=== PATIENT | female | born 1995 | race Caucasian/White ===

== ENCOUNTER 2017-02-23 12:40 | Inpatient (IN) | payer OTHER ==
[~2017-02-23] VITALS: Ht 162.6 cm; Wt 169.2 kg
[~2017-02-23 12:40] MED LIST: CLINDAMYCIN HC300 MG PO; FERROCITE324 MG PO; FLA500 PO; GUAIFENESI100 MG/52 PO; LAC PO; LEVAQUIN500 MG PO; LEVAQUIN750 MG PO; MAC50 PO; TRAZODONE HYDR100 MG PO; TRAZODONE100 MG PO; TRAZODONE50 M1 PO
--- NOTE | 2017-02-23 14:22 | NUR ---
TWO UNSUCCESSFUL IV INSERTION ATTEMPTS
--- NOTE | 2017-02-23 14:24 | NUR ---
PT BROUGHT IN VIA [facility] TO BE EVALUATED FOR THE COMPLAINT OF FEVER WHICH BEGAN THIS AM AND INCREASED AGITATION PER THE PTS MOTHER. MSE WAS COMPLETED BY DR. BERG. PT HAS HX OF SEVERE AUTISM AND IS NON-VERBAL. PT HAS ELEPHANITIS NOTED TO THE BILATERAL LOWER EXTREMITITES.
[2017-02-23 15:02] LABS: BASOPHIL % 1.9 % (0-2); PLATELET COUNT 197 x10^3mcL (130-400)
[2017-02-23 15:06] LABS: CALCIUM 8.3 mg/dL (8.5-10.1); CARBON DIOXIDE 26.2 mmol/L (21-32); CHLORIDE SERUM 104 mmol/L (98-107); CREATININE SERUM 0.8 mg/dL (0.6-1.0); GFR1 > 60 mL/min; GLUCOSE SERUM 93 mg/dL (74-106); SODIUM SERUM 138 mmol/L (136-145)
[2017-02-23 15:16] LABS: rbc morphology (normal/abnorm) ABNORMAL (NORMAL)
[2017-02-23 15:20] LABS: CK-MB 0.6 ng/mL (0-3.6)
[2017-02-23 15:30] LABS: ALKALINE PHOSPHATASE 94 U/L (46-116); ALT/SGPT 15 U/L (14-59); AST/SGOT 14 U/L (15-37); BILIRUBIN TOTAL 1.2 mg/dL (0.20-1.00)
[2017-02-23 15:46] LABS: ALBUMIN 3.2 g/dL (3.4-5.0)
[2017-02-23 15:55] LABS: UA SPECIFIC GRAVITY 1.015 (1.005-1.035); microscopic required? YES; urine erythrocyte TRACE (NEGATIVE)
[2017-02-23] MEDS ORDERED: KLONOPIN1 MG PO (16:35)
[2017-02-23] MEDS ORDERED: TRAZODONE50 M1 PO (16:35)
--- NOTE | 2017-02-23 17:27 | NUR ---
PT RESTING IN BED IN A POSITION OF COMFORT WITH MOTHER AT BEDSIDE, RESP EVEN AND UNLABORED, PT IN NO ACUTE DISTRESS, MOTHER AT BEDSIDE
--- NOTE | 2017-02-23 19:22 | NUR ---
REPORT GIVEN TO FLASH WYATT TO ASSUME CARE FOR THIS PT POST TRANSFER FROM ED TO TELE UNIT
--- NOTE | 2017-02-23 19:27 | NUR ---
REPORT GIVEN TO TOMMIE TO CARE FOR THIS PT UNTIL THE PT IS TAKEN TO TELE
[2017-02-23 19:43] VITALS: BP 128/42
[2017-02-23 19:57] VITALS: BP 100/70
--- NOTE | 2017-02-23 20:06 | NUR ---
RECEIVED PATIENT FROM ED VIA GUERNEY, PATIENT A/O TO NAME MOTHER AT BEDSIDE, TELE # 3 ST, IV ACCESS TO CHOLO WNL, PATIENT NON VERBAL MOTHER AT BEDSIDE STATES PATIENT IS IN PAIN AND WILL MEDICATE ORDERED, ORIENTED PATIENT TO ROOM AND SURROUNDINGS, BED IN LOW POSITION BED RAILS UP X 2, CALL LIGHT WITHIN REACH, WILL ENDORSE CARE TO PRIMARY NURSE LEXY VIDALES
--- NOTE | 2017-02-23 20:10 | NUR ---
PICTURES TAKEN OF LOWER EXTREMITIES AND PLACED IN CHART.
--- NOTE | 2017-02-23 21:31 | NUR ---
PT'S TEMP = 101.4. COOLING MEASURES INITIATED AND TYLENOL WAS GIVEN. WILL CONTINUE TO MONITOR.
[2017-02-23 21:39] LABS: RED BLOOD CELLS 2.99 M/mm3 (4.10-5.10); TOTAL IRON BINDING CAPACITY 257 ug/dL (250-450)
[2017-02-23 21:43] LABS: IRON 11 ug/dL (50-170)
--- NOTE | 2017-02-23 22:50 | NUR ---
RECHECKED TEMP = 101.8. DR DEGROOT MADE AWARE.
--- NOTE | 2017-02-23 23:20 | NUR ---
TORADOL 15 MG IV GIVEN ORDERED FOR TEMP 101.8. WILL CONTINUE TO MONITOR.
--- NOTE | 2017-02-24 01:00 | NUR ---
RECHECKED TEMP = 102.2. DR PERKINS MADE AWARE. WILL WAIT FOR NEW ORDER.
--- NOTE | 2017-02-24 01:23 | NUR ---
TORADOL 30 MG IV GIVEN ORDERED FOR TEMP OF 102.2. WILL CONTINUE TO MONITOR.
--- NOTE | 2017-02-24 02:34 | NUR ---
RECHECKED TEMP = 99.9. COOLING MEASURES CONTINUE. WILL CONTINUE TO MONITOR.
--- NOTE | 2017-02-24 04:55 | NUR ---
PT RESTING IN BED. NO DISTRESS NOTED. IVF INFUSING WELL. CALL LIGHT WITHIN REACH. WILL CONTINUE TO MONITOR.
[2017-02-24 06:08] VITALS: BP 135/92
[2017-02-24 08:04] LABS: T3 TOTAL 0.8 ng/mL
[2017-02-24 08:08] LABS: CALCIUM 7.9 mg/dL (8.5-10.1); CARBON DIOXIDE 21.8 mmol/L (21-32); CHLORIDE SERUM 107 mmol/L (98-107); CREATININE SERUM 0.9 mg/dL (0.6-1.0); GFR1 > 60 mL/min; GLUCOSE SERUM 93 mg/dL (74-106); HDL CHOLESTEROL 50 mg/dL (40-60); LIPASE 51 IU/L (73-393); MAGNESIUM 1.8 mg/dL (1.8-2.4); PHOSPHOROUS 3.6 mg/dL (2.5-4.9); POTASSIUM SERUM 4.3 mmol/L (3.5-5.1); SODIUM SERUM 140 mmol/L (136-145); TRIGLYCERIDES 56 mg/dL (<150)
[2017-02-24 08:11] LABS: AMYLASE 15 U/L (25-115); CHOLESTEROL 79 mg/dL (<200); CHOLESTEROL/HDL RATIO 1.6
[2017-02-24 08:13] LABS: PLATELET COUNT 162 x10^3mcL (130-400)
[2017-02-24 08:14] LABS: RED CELL DISTRIBUTION WIDTH 19.8 % (11.5-14.5)
[2017-02-24 08:53] LABS: FREE T4 1.76 ng/dL (0.76-1.46); FREE THYROXINE INDEX 3.6 ug/dL (1.4-4.5); T4(THYROXINE) 9.7 ug/dL (4.7-13.3)
[2017-02-24 09:01] LABS: BAND NEUTROPHIL 1 % (0-10); BASOPHIL 0 % (0-2); MONOCYTE 1 % (0-7); SEGMENTED NEUTROPHILS 95 % (37-75)
[2017-02-24 09:02] LABS: rbc morphology (normal/abnorm) ABNORMAL (NORMAL)
[2017-02-24 09:03] LABS: PLATELET MORPHOLOGY PLATELETS DECREASED
--- NOTE | 2017-02-24 09:09 | NUR ---
PT AWAKE ALERT, PT IS ASPHASIC. TELE 3 SR. PT IS INCONTINENT OF BOWEL AND BLADDER. LUNGS DIMINISHED TO BLL. GENERALIZED WEAKNESS. BOWEL TONES ACTIVE IN ALL 4 QUADS. BLE CELLULITIS. NO SIGNS OF PAIN. IV TO THE CHOLO PATENT AND INTACT. PT IS CALM AND COOEPRATIVE WITH CARE. CALL LIGHT IN REACH.
[2017-02-24 09:52] VITALS: Ht 162.6 cm; Wt 169.2 kg
[2017-02-24 10:05] VITALS: BP 122/32
--- NOTE | 2017-02-24 11:10 | NUR ---
PT RESTING IN BED MOTHER AT BEDSIDE. NO SIGNS OF DISTRESS. NO SIGNS OF NON VERBAL INDICATORS OF PAIN. WILL CONTINUE TO MONITOR.
[2017-02-24 14:00] VITALS: BP 131/50
--- NOTE | 2017-02-24 14:57 | NUR ---
PATIENT WITH ELEVATED TEMPERATURE. PRN TYLENOL PROVIDED AND TOLERATED WELL. COOLING MEASURES IN PLACE. WILL CONTINUE MONITORING.
--- NOTE | 2017-02-24 15:26 | NUR ---
TEMPERATIVE RECHECKED AND WNL. PT SKIN WARM TO TOUCH. PT NONVERBAL UNABLE TO ASSESS NEURO STATUS. MOTHER REPORTS PT IS AT PTS BASELINE. AIR CONDITIONER ON WILL CONTINUE TO MONITOR.
[2017-02-24 16:50] VITALS: BP 123/59
--- NOTE | 2017-02-24 19:48 | NUR ---
RECEIVED Pt A/O X1 Pt IS APHASIC UNABLE TO ANSWER ANY QUESTIONS. NO DISTRESS NOTED AT THIS TIME. LUNG SOUNDS ARE CTA BILATERALLY. Pt IS ON ROOM AIR, NO SOB NOTED. ACTIVE BOWEL SOUNDS X4 QUADS. Pt WITH EDEMA TO BLE, REDNESS, WARM TO TOUCH AND TENDERNESS TO EXTREMITIES MAINLY TO LEFT UPPER THIGH. SOME DRAINNAGE NOTED WITH FOUL SMELL. MOTHER IS AT BEDSIDE. SAFETY AND COMFORT MEASURES REMAIN IN PLACE. WILL CONTINUE TO MONITOR.
--- NOTE | 2017-02-24 20:17 | NUR ---
Pt MEDIACTED WITH TORADOL IV FOR TEMP OF 101.0 A/C IS ON, Pt REFUSES TO KEEP COLD PACKS. WILL CONTINUE TO MONITOR.
[2017-02-24 20:39] VITALS: BP 109/51
--- NOTE | 2017-02-24 21:05 | NUR ---
NOTIFIED: Pt'S MOTHER REFUSED ENDOVAGINAL U/S.
[2017-02-25 02:42] LABS: BASOPHIL % 0.2 % (0-2); PLATELET COUNT 140 x10^3mcL (130-400)
[2017-02-25 02:43] LABS: RED CELL DISTRIBUTION WIDTH 19.3 % (11.5-14.5)
[2017-02-25 02:47] LABS: rbc morphology (normal/abnorm) ABNORMAL (NORMAL)
--- NOTE | 2017-02-25 02:57 | NUR ---
DR. DEGROOT AWARE OF H/H RESULTS. IV SITE TO CHOLO INFILTRATED.
[2017-02-25 03:23] VITALS: BP 112/54
--- NOTE | 2017-02-25 04:48 | NUR ---
X2 22 GAUGE IV SITES. RUE AND RIGHT HAND.
[2017-02-25 05:19] VITALS: BP 128/43
--- NOTE | 2017-02-25 06:00 | NUR ---
BLOOD TRANSFUSION STARTED. CALM AND COOPERATIVE. WILL CONTINUE TO MONITOR.
--- NOTE | 2017-02-25 06:45 | NUR ---
I HAVE REVIEWED THE DATA COLLECTION BY INTERNAL COMMUNICATIONS WRITER (NAME): GILBERTO ZAPATA INTERNAL COMMUNICATIONS WRITER ENTERED ON (DATE/TIME): 7P-7A I CONCUR WITH THE DATA AND ANY EXCEPTIONS OR COMMENTS ARE LISTED BELOW:
--- NOTE | 2017-02-25 07:53 | NUR ---
PT AWAKE ALERT, SPHASIC. TELE 2. MOTHER STATES PT IS AT NORMAL BASELINE. DUE TO DEFICITS UNABLE TO ASSESS NEURO STATUS COMPLETLY. PT TRACKS WITH EYES, FLEXES TO PAIN, AND MOANS AND GRUNTS WHEN IN PAIN OR NEEDING ASSISTANCE. LUNG SOUNDS DIMINISHED TO BLL, SHALLOW EVEN REPIRATIONS. BOWEL TONES ACTIVE IN ALL QUADRANTS. PT IS INCONTINENT OF BOWEL AND BLADDER. BED REST AT THIS TIME. SKIN IS INTACT, WITH CELLULITIS AND DISCOLORATION TO BLE. IV TO THE KELY/RH INFUSING, PT CURRENTLY RECIEVING BLOOD TRANSFUSION. FAMILY AT BEDSIDE. WILL CONTINUE TO MONITOR CALL LIGHT IN REACH.
--- NOTE | 2017-02-25 09:30 | NUR ---
BLOOD TRANSFUSION COMPLETED POST VS WNL, NO TRANSFUSION REACTION. 250 ML INFUSED, REMAINING BLOOD DISPOSED.
--- NOTE | 2017-02-25 09:30 | NUR ---
PT OFF THE FLOOR IN PROCEDURE.
--- NOTE | 2017-02-25 13:09 | NUR ---
PT RESTING IN BED NO SIGNS OF DISTRESS CALL LIGHT IN REACH, FAMILY AT BEDSIDE. WILL CONTINUE TO MONITOR.
[2017-02-25 14:49] VITALS: BP 127/66
--- NOTE | 2017-02-25 17:49 | NUR ---
PT RESTING IN BED NO SIGNS OF DISTRESS, EVEN UNLABORED RESPIRATIONS VSS. CALL LIGHT IN REACH, FAMILY AT BEDSIDE WILL CONTINUE TO MONITOR.
[2017-02-25 18:29] VITALS: BP 128/67
--- NOTE | 2017-02-25 18:36 | NUR ---
TEMPERATIRE ELEVATED COOLING MEASURES IN PLACE. WILL REASSESS
[2017-02-25 18:44] LABS: CALCIUM 7.9 mg/dL (8.5-10.1); CARBON DIOXIDE 24.8 mmol/L (21-32); CHLORIDE SERUM 108 mmol/L (98-107); GFR1 > 60 mL/min; GLUCOSE SERUM 92 mg/dL (74-106); MAGNESIUM 1.9 mg/dL (1.8-2.4); PHOSPHOROUS 3.9 mg/dL (2.5-4.9); POTASSIUM SERUM 4.3 mmol/L (3.5-5.1); SODIUM SERUM 141 mmol/L (136-145)
[2017-02-25 18:50] LABS: PLATELET COUNT 167 x10^3mcL (130-400)
[2017-02-25 19:08] LABS: BASOPHIL % 0 % (0-2)
[2017-02-25 19:15] LABS: rbc morphology (normal/abnorm) ABNORMAL (NORMAL); target cell (codocyte) 2+
--- NOTE | 2017-02-25 19:15 | NUR ---
DR MILLER AWARE OF PATIENT'S H/H.
--- NOTE | 2017-02-25 19:20 | NUR ---
PATIENT RECEIVED AWAKE AND ALERT. MOTHER AT BEDSIDE. NO DISTRESS NOTED. NO SIGNS AND SYMPTOMS OF PAIN NOTED. IV SITE TO KELY, PATENT AND INTACT. IV SITE TO RIGHT FOREARM, PATENT AND INTACT. BED IN LOWEST POSITION. CALL LIGHT WITHIN REACH. WILL CONTINUE TO MONITOR.
[2017-02-25 20:52] VITALS: BP 100/63
[2017-02-25 20:54] VITALS: BP 98/47
--- NOTE | 2017-02-26 05:11 | NUR ---
PATIENT RESTED THROUGHOUT THE NIGHT. NO DISTRESS NOTED. NO SIGNS AND SYMPTOMS OF PAIN NOTED. SAFETY AND COMFORT MEASURES MAINTAINED. BED IN LOWEST POSITION. CALL LIGHT WITHIN REACH. WILL CONTINUE TO MONITOR AND ENDORSE TO NEXT SHIFT NURSE.
--- NOTE | 2017-02-26 05:12 | NUR ---
IV TO RIGHT UPPER ARM INFILTRATED DC'D AT THIS TIME.
[2017-02-26 05:37] VITALS: BP 141/66
[2017-02-26 06:24] LABS: CALCIUM 7.8 mg/dL (8.5-10.1); CARBON DIOXIDE 24.5 mmol/L (21-32); CHLORIDE SERUM 114 mmol/L (98-107); CREATININE SERUM 0.9 mg/dL (0.6-1.0); GFR1 > 60 mL/min; GLUCOSE SERUM 82 mg/dL (74-106); MAGNESIUM 1.9 mg/dL (1.8-2.4); PHOSPHOROUS 3.8 mg/dL (2.5-4.9); POTASSIUM SERUM 4.5 mmol/L (3.5-5.1); SODIUM SERUM 147 mmol/L (136-145)
[2017-02-26 06:26] LABS: ALBUMIN 2.1 g/dL (3.4-5.0)
[2017-02-26 06:37] LABS: PLATELET COUNT 167 x10^3mcL (130-400)
[2017-02-26 06:44] LABS: BASOPHIL % 0 % (0-2); RED CELL DISTRIBUTION WIDTH 19.5 % (11.5-14.5)
[2017-02-26 06:46] LABS: rbc morphology (normal/abnorm) ABNORMAL (NORMAL)
[2017-02-26 06:48] LABS: target cell (codocyte) 1+
--- NOTE | 2017-02-26 07:35 | NUR ---
RECEIVED THE PATIENT AWAKE BUT NON-VERBAL AT THIS TIME WITH HX OF AUTISM. NO INDICATION OF PAIN, SHORTNESS OF BREATH OR NAUSEA/VOMITING. TELE # 2 READS SINUS TACHYCARDIA. IVF NS VIA H/L TO RFA. CALL LIGHT WITHIN REACH. SIDE RAILS UP X3. THE MOTHER WAS AT BEDSIDE.
--- NOTE | 2017-02-26 08:00 | NUR ---
DR. ENRIQUEZ AND THE TEAM WERE MAKING ROUND TO SEE THE PATIENT. THE CARE PLAN WAS DISCUSSED WITH THE PATIENT'S MOTHER. DR. ENRIQUEZ WAS MADE AWARE OF THE PATIENT'S LAB RESULTS THIS MORNING INCLUDING H/H 5.7.
[2017-02-26 09:46] VITALS: BP 130/73
--- NOTE | 2017-02-26 11:35 | NUR ---
THE PATIENT WAS TAKEN TO OR FOR CENTRAL LINE INSERTION.
[2017-02-26 13:20] VITALS: BP 141/75
--- NOTE | 2017-02-26 13:20 | NUR ---
RECEIVED THE PATIENT BACK FROM RECOVERY ROOM S/P CENTRAL LINE INSERTION TO [facility]. THE PATIENT WAS SLIGHTLY DROWSY BUT FOLLOW SIMPLE COMMANDS. VS CHECKED (SEE DOC). CALL LIGHT WITHIN REACH. SIDE RAILS UP X3. BED WAS AT LOWEST POSITION AND ALARM WAS ON. THE MOTHER WAS AT BEDSIDE. CONTINUE TO MONITOR.
--- NOTE | 2017-02-26 15:30 | NUR ---
AT 1515, ONE UNIT OF PRBC STARTED TO BE INFUSED. THE VS CHECKED TEMP 98.8, HR 102, BP 134/73, RR 16, AND PO2 100% ON NASAL CANNULA AT 2L/MIN. INSTRUCTED THE MOTHER TO NOTIFY THE NURSE FOR ANY ADVERSE REACTION. AT 1530, RECHECKING THE VS (15MIN BLOOD STARTED TO INFUSED): TEMP 99.3 (AXILLARY) AND 99.9 (TEMPORAL), HR 105 BP 122/73, RR 16 AND PO2 99% ON NASAL CANNULA AT 2L/MIN. DR. ENRIQUEZ WAS PAGED TO NOTIFY THE INCREASING TEMP.
--- NOTE | 2017-02-26 15:51 | NUR ---
DR. ENRIQUEZ CALLED BACK AND WAS AWARE OF THE TEMP 99.3 (AXILLARY) AND 99.9 (TEMPORAL). DOCTOR VERBALIZED MEDICATING THE PATIENT WITH TYLENOL 650 MG PO. THE MED WAS GIVEN TO THE PATIENT. INSTRUCTED THE MOTHER TO CALL THE NURSE FOR ANY ADVERSE REACTION. CONTINUE TO MONITOR.
[2017-02-26 17:42] VITALS: BP 154/72
--- NOTE | 2017-02-26 18:30 | NUR ---
THE BLOOD TRANSFUSION COMPLETED. VS CHECKED: TEMP 99.3, BP 126/72, RR 16, HR 100, PO2 99 % ON ROOM AIR. NO ADVERSE REACTION NOTED.
--- NOTE | 2017-02-26 19:19 | NUR ---
3 PORTS OF CENTRAL LINE FLUSHED WELL PER PROTOCOL. THE IV WITH 1/2 NS RUNNING VIA THE BLUE PORT OF THE CENTRAL LINE.
[2017-02-26 20:31] LABS: PLATELET COUNT 168 x10^3mcL (130-400)
[2017-02-26 20:33] LABS: BASOPHIL % 0 % (0-2); RED CELL DISTRIBUTION WIDTH 20.2 % (11.5-14.5)
[2017-02-26 21:39] VITALS: BP 153/75
--- NOTE | 2017-02-26 21:45 | NUR ---
Awake and responsive but no words spoken noted. No resp.distress noted. No cues of pain. Mother at the bedside. All due meds taken and tolerated well. Will cont.to monitor. Call light within reach.
--- NOTE | 2017-02-27 04:19 | NUR ---
Afebrile. No significant change in condition noted. No active bleeding observed. Mother at the bedside. No cues of pain. Cont.on IV cleocin and oral bactrim. Contact isolation E.coli, ESBL urine, proper use of PPE and good hand hygiene observed. Kept comfortable.
[2017-02-27 05:47] VITALS: BP 145/76
--- NOTE | 2017-02-27 07:20 | NUR ---
RESUME CARE: PATIENT AWAKE BUT NON VERBAL. NO INDICATION OF PAIN, NAUSEA/VOMITING OR SHORTNESS OF BREATH. CENTRAL LINE TO RIGHT NECK WITH DRESSING IN PLACE. ANOTHER H/L TO RFA. TELE # 2 READS SINUS RHYTHMS WITH EPISODES OF SINUS TACHYCARDIA. CALL LIGHT WITHIN REACH. SIDE RAILS UP X3. BED WAS AT LOWEST POSITION AND ALARM WAS ON. THE MOTHER WAS AT BEDSIDE.
--- NOTE | 2017-02-27 09:00 | NUR ---
DR. ENRIQUEZ AND THE TEAM WERE MAKING ROUND TO SEE THE PATIENT. THE CARE PLAN WAS UPDATED TO THE MOTHER AT BEDSIDE. THE MOTHER AGREED WITH THE PLAN.
[2017-02-27 09:57] VITALS: BP 141/73
[2017-02-27] MEDS ORDERED: BACDS PO (10:32)
[2017-02-27] MEDS ORDERED: FER300 PO (10:37)
[2017-02-27] MEDS ORDERED: PROV5 PO (10:40)
[2017-02-27 11:05] VITALS: BP 141/73
--- NOTE | 2017-02-27 11:28 | NUR ---
DR. DAHL-RESIDENT WAS CALLED AND NOTIFIED THAT THE PATIENT'S WOUND CULTURE SHOWS MDRO. DOCTOR WILL CHECK WITH SENIOR.
--- NOTE | 2017-02-27 12:20 | NUR ---
DISCHARGE INSTRUCTION WAS EXPLAINED AND HANDED TO THE PATIENT'S MOTHER, SUN JAMARI. ALL CONCERNS WERE ADDRESSED AND THE MOTHER VERBALIZED UNDERSTANDING. H/L AT RFA AND CENTRAL LINE AT RIGHT NECK WERE REMOVED WITH THE TIPS INTACT. THE TELE WAS REMOVED AND RETURNED. ID BANDS WERE REMOVED. THE PATIENT WAS TAKEN TO THE LOBBY VIA HER OWN WHEELCHAIR IN STABLE CONDITION. ALL HER BELONGINGS WERE SENT HOME WITH THE PATIENT UPON DISCHARGE.
== END 2017-02-27 12:22 | disposition home or self-care (01) | DRG 720 ==
LOC: ED 12:40 → DU 16:03
PROVIDERS: Emergency Medicine; Internal Medicine Gastroenterology; ADMIT Family Medicine
PROC: 30233N1 Transfusion of Nonautologous Red Blood Cells into Peripheral Vein, Percutaneous Approach (ICD-10-PCS; 2017-02-25)
PROC: 0DB98ZX Excision of Duodenum, Via Natural or Artificial Opening Endoscopic, Diagnostic (ICD-10-PCS; principal; 2017-02-25 09:15)
PROC: 0DB68ZX Excision of Stomach, Via Natural or Artificial Opening Endoscopic, Diagnostic (ICD-10-PCS; principal; 2017-02-25 09:15)
PROC: 05HM33Z Insertion of Infusion Device into Right Internal Jugular Vein, Percutaneous Approach (ICD-10-PCS; 2017-02-26)
PROC: B543ZZA Ultrasonography of Right Jugular Veins, Guidance (ICD-10-PCS; 2017-02-26)
DX: A41.9 Sepsis, unspecified organism (principal); N17.0 Acute kidney failure with tubular necrosis; K72.01 Acute and subacute hepatic failure with coma; K72.90 Hepatic failure, unspecified without coma; F72 Severe intellectual disabilities; E43 Unspecified severe protein-calorie malnutrition; R65.20 Severe sepsis without septic shock; N39.0 Urinary tract infection, site not specified; B96.20 Unspecified Escherichia coli [E. coli] as the cause of diseases classified elsewhere; E66.01 Morbid (severe) obesity due to excess calories; Z68.44 Body mass index [BMI] 60.0-69.9, adult; D50.9 Iron deficiency anemia, unspecified; K29.70 Gastritis, unspecified, without bleeding; K90.0 Celiac disease; T14.8 Other injury of unspecified body region; L03.116 Cellulitis of left lower limb; F84.0 Autistic disorder; I89.0 Lymphedema, not elsewhere classified; Z66 Do not resuscitate; X58.XXXA Exposure to other specified factors, initial encounter; Y92.009 Unspecified place in unspecified non-institutional (private) residence as the place of occurrence of the external cause
CPT/HCPCS: 43235; 83880; 84439; A4301; J1885; J1956; J2060; J2250; J2405; J2704; J2916; J3420; J3490; J7030; J7040; J7050; J7120; P9016; Q0092; Q0163

== ENCOUNTER 2017-04-09 09:23 | Inpatient (IN) | payer OTHER ==
[~2017-04-09] VITALS: Ht 162.6 cm; Wt 158.5 kg
[~2017-04-09 09:23] MED LIST changes: +BACDS PO; +FER300 PO; +KLONOPIN1 MG PO; +PROV5 PO
--- NOTE | 2017-04-09 09:40 | NUR ---
PT BIB [facility] WITH MOTHER AT BEDSIDE FOR MAGGOTS FOUND ON TOP OF LEFT FOOT, MOTHER STS SHE WAS DRESSING PT AND NOTICED THE MAGGOTS THIS MORNING, PER MEDIC PT HOUSE APPEARS CLEAN, PT HAS HX OF LYMPHEDEMA SINCE 2008, PT HAS SEVERE SWELLING AND DRY SKIN TO CATE LOWER EXT, PINK TINY BUMPS NOTED TO TOP OF LEFT FOOT WHICH APPEAR MOIST WITH MAGGOTS NOTED INSIDE CREVICES, PT HX OF AUTISM SINCE AND NONVERBAL, PER MOTHER NO SIGNIFICANT CHANGES IN MENTATIONS, PT AWAKE ALERT, NO GUARDING NOTED, PT RESP EVEN AND UNLABORED, IN NO ACUTE DISTRESS, RESTING COMFORTABLY IN BED WITH MOTHER AT BEDSIDE, PENDING MSE, CALL LIGHT WITHIN MOTHERS REACH, WILL CONTINUE TO MONITOR
--- NOTE | 2017-04-09 10:12 | NUR ---
PHOTOS TAKEN OF WOUND ON TOP OF FOOT AND PLACED ON HARD CHART, DR. SOLO AT BEDSIDE FOR MSE
--- NOTE | 2017-04-09 10:59 | NUR ---
PORT[facility] RADIOLOGY AT BEDSIDE FOR XRAY
--- NOTE | 2017-04-09 11:49 | NUR ---
ANOTHER FILM PROCESSING SUPERVISOR AT BEDSIDE TO ATTEMPT FOR BLOOD CULTURES AT THIS TIME, WILL ADMINISTER ORDERED ABX AFTER SECOND COLLECTION OF BLOOD CULTURES
[2017-04-09 12:09] LABS: BASOPHIL % 0.3 % (0-2); PLATELET COUNT 308 x10^3mcL (130-400)
--- NOTE | 2017-04-09 12:11 | NUR ---
IV ABX INFUSING AT THIS TIME PER MD ORDER, PLEASE SEE EMAR, PT TOLERATED WELL
[2017-04-09 12:15] LABS: RED CELL DISTRIBUTION WIDTH 22.4 % (11.5-14.5)
[2017-04-09 12:32] LABS: CALCIUM 8.8 mg/dL (8.5-10.1); CHLORIDE SERUM 107 mmol/L (98-107); CREATININE SERUM 0.6 mg/dL (0.6-1.0); GFR1 > 60 mL/min; GLUCOSE SERUM 91 mg/dL (74-106); POTASSIUM SERUM 4.3 mmol/L (3.5-5.1); SODIUM SERUM 142 mmol/L (136-145)
[2017-04-09 12:34] LABS: T3 TOTAL 1.69 ng/mL
[2017-04-09 12:36] LABS: ALKALINE PHOSPHATASE 103 U/L (46-116); ALT/SGPT 35 U/L (14-59); AST/SGOT 21 U/L (15-37); BILIRUBIN TOTAL 0.33 mg/dL (0.20-1.00); C REACTIVE PROTEIN 3.7 mg/dL (<=0.9); TOTAL PROTEIN, SERUM 7.9 g/dL (6.4-8.2)
[2017-04-09 12:37] LABS: ALBUMIN 3.1 g/dL (3.4-5.0); CK-MB 0.6 ng/mL (0-3.6)
--- NOTE | 2017-04-09 12:38 | NUR ---
PER DR. SOLO NO NEED FOR URINE COLLECTION
[2017-04-09 12:39] LABS: FREE T4 1.62 ng/dL (0.76-1.46); FREE THYROXINE INDEX 4.5 ug/dL (1.4-4.5); T4(THYROXINE) 12.4 ug/dL (4.7-13.3)
--- NOTE | 2017-04-09 13:00 | NUR ---
[facility]SA SWAB COLLECTED AND SENT TO LAB, [facility] RADIOLOGY AT BEDSIDE FOR CXR
[2017-04-09 13:01] LABS: CHOLESTEROL/HDL RATIO 3.8; MAGNESIUM 1.9 mg/dL (1.8-2.4); PHOSPHOROUS 3.9 mg/dL (2.5-4.9)
[2017-04-09] MEDS ORDERED: ADVIL100 MG PO (13:01)
[2017-04-09] MEDS ORDERED: CLONAZEPAM1 MG PO (13:02)
[2017-04-09] MEDS ORDERED: TRAZODONE100 MG PO (13:02)
--- NOTE | 2017-04-09 13:38 | NUR ---
REPORT GIVEN TO FLASH KAPOOR WHO TOOK REPORT FOR FLASH MASTERS TELE FLOOR TO ASSUME CARE OF PT
[2017-04-09 14:13] VITALS: BP 145/97
--- NOTE | 2017-04-09 14:30 | NUR ---
RECEIVED PATIENT FROM ED VIA GUERNEY, PATIENT A/O X 1 HX OF AUTISM MOTHER AT BEDSIDE, TELE # 60 ST, IV ACCESS TO RIGHT HAND WNL, NO C/O OR S/S OF PAIN AT THIS TIME, ORIENTED PATIENT/FAMILY TO ROOM AND SURROUNDINGS, BED IN LOW POSITION, BED RAILS UP X 2, CALL LIGHT WITHIN REACH, WILL ENDORSE CARE TO PRIMARY NURSE KIN RM
--- NOTE | 2017-04-09 16:00 | NUR ---
IV TO R HAND CATHETER OUT. NEW IV INSERTED TO LFA W/ 20G NEELDE. PATIENT REFUSED FOOD OUTSIDE HOME. BUT PATIENT ABLE TO DRINK WATER.
--- NOTE | 2017-04-09 17:00 | NUR ---
DR. HOOD CAME TO SAW PATIENT. WOUND CARE TO L FOOT BY DR. HOOD. PHOTO TAKEN. WOUND CULTURE CELLECTED.
--- NOTE | 2017-04-09 19:30 | NUR ---
NO S/S OF PAIN. ENDORSED CARE TO NOC NURSE.
--- NOTE | 2017-04-09 20:00 | NUR ---
RECEIVED REPORT FROM DAY SHIFT RN. PT RESTING IN BED. AWAKE AND ALERT, NONVERBAL. NO FACIAL GRIMACE. HX OF AUTISM. IV ON LFA, NS INFUSING. BED IN LOWEST POSITION. SIDE RAILS UP X2. MOTHER AT BEDSIDE.
--- NOTE | 2017-04-09 21:00 | NUR ---
ATIVAN 1 MG GIVEN PER ORDER PRIOR TO ULTRASOUND OF LOWER EXTREMITIES.
[2017-04-09 21:59] VITALS: BP 153/92
--- NOTE | 2017-04-09 23:50 | NUR ---
PT WAS RESTLESS AND AGITATED, MEDICATED WITH NORCO AND MORPHINE X1. PT WAS ABLE TO SLEEP AND NO DISTRESS NOTED AFTERWARDS. SAFETY MEASURES MAINTAINED. WILL ENDORSE CONTINUITY OF CARE TO ONCOMING RN. MOTHER AT BEDSIDE AND SUPPORTIVE OF CARE.
[2017-04-10 07:04] VITALS: BP 138/75
[2017-04-10 07:57] LABS: CALCIUM 8.3 mg/dL (8.5-10.1); CARBON DIOXIDE 26.3 mmol/L (21-32); CHLORIDE SERUM 108 mmol/L (98-107); CREATININE SERUM 0.6 mg/dL (0.6-1.0); GFR1 > 60 mL/min; GLUCOSE SERUM 95 mg/dL (74-106); MAGNESIUM 1.9 mg/dL (1.8-2.4); PHOSPHOROUS 4.3 mg/dL (2.5-4.9); POTASSIUM SERUM 4.2 mmol/L (3.5-5.1); SODIUM SERUM 141 mmol/L (136-145)
--- NOTE | 2017-04-10 08:00 | NUR ---
PATIENT HAS AUTISM. NONVERBRAL. MOTHER AT BED SIDE. TELE#60 = ST; HR = 107. NO RESP DISTRESS, O2 SAT 96% ON RA. NO S/S OF PAIN NOW. PATIENT REFUSED EAT OUTSIDE OF HOME. IVF OF NS 100CC/HR INFUSING WELL. DRSG TO LT FOOT APPLIED BY MARKETING SERVICES VICE PRESIDENT. DRSG INTACT. S/S INCONT. BLE SWELLING 4+. BED RESTING. CALL LIGHT IN REACH.
--- NOTE | 2017-04-10 09:30 | NUR ---
DR. RENAE AND MEDICAL TEAM MADE MORNING ROUND. PLAN OF CARE DISCUSSED WITH PATIENT'S MOTHER, INCLUDED WITH PATIANT NEEDS TO TRANSFER TO [facility] FOR LYNPHEDEMA BLE. PATIENT'S MOTHER AGREED WITH PLAN OF CARE. SHE WANTED PATIENT GO HOME TODAY.
[2017-04-10 10:21] LABS: ERYTHROCYTE SED RATE 34 mm/hr (0-20)
[2017-04-10 10:29] LABS: BASOPHIL % 0.2 % (0-2); PLATELET COUNT 291 x10^3mcL (130-400)
[2017-04-10 10:30] VITALS: BP 118/61
[2017-04-10 10:38] LABS: RED CELL DISTRIBUTION WIDTH 22.8 % (11.5-14.5)
[2017-04-10 11:24] LABS: rbc morphology (normal/abnorm) ABNORMAL (NORMAL)
[2017-04-10 13:26] VITALS: BP 118/61
--- NOTE | 2017-04-10 14:45 | NUR ---
D/C TO HOME PER ORDER. INSTRUCTION GIVEN TO MOTHER, MS. KIERRA KAUFFMAN. IV D/C'D. OVER NEEDLE CATHETER INTACT. IV SITE CLEAN. NO REDNESS/SWELLING. PER MOTHER - DRSG TO L FOOT WOULD BE CHANGED TOMORROW BY HOME HEALTH CARE NURSE. CONDITION STABLE.
== END 2017-04-10 14:46 | disposition home or self-care (01) | DRG 383 ==
LOC: ED 09:23 → DU 12:45
PROVIDERS: Family Medicine; Specialist; ADMIT Family Medicine
DX: L03.116 Cellulitis of left lower limb (principal); N17.0 Acute kidney failure with tubular necrosis; E44.0 Moderate protein-calorie malnutrition; Z94.89 Other transplanted organ and tissue status; L97.929 Non-pressure chronic ulcer of unspecified part of left lower leg with unspecified severity; B87.1 Wound myiasis; F84.0 Autistic disorder; I89.0 Lymphedema, not elsewhere classified; D50.9 Iron deficiency anemia, unspecified; E03.9 Hypothyroidism, unspecified; Z66 Do not resuscitate; E66.01 Morbid (severe) obesity due to excess calories; Z68.44 Body mass index [BMI] 60.0-69.9, adult
CPT/HCPCS: 83880; 84439; J1956; J2060; J2270; J3490; J7030; Q0092

== ENCOUNTER 2017-05-09 12:40 | Inpatient (IN) | payer OTHER ==
[~2017-05-09] VITALS: Ht 162.6 cm; Wt 158.8 kg
[~2017-05-09 12:40] MED LIST changes: +ADVIL100 MG PO; +CLONAZEPAM1 MG PO
[2017-05-09 14:13] LABS: PLATELET COUNT 234 x10^3mcL (130-400)
[2017-05-09 14:17] LABS: RED CELL DISTRIBUTION WIDTH 19.5 % (11.5-14.5)
[2017-05-09 14:27] LABS: CALCIUM 8.4 mg/dL (8.5-10.1); CARBON DIOXIDE 26.5 mmol/L (21-32); CHLORIDE SERUM 103 mmol/L (98-107); CREATININE SERUM 0.8 mg/dL (0.6-1.0); GFR1 > 60 mL/min; GLUCOSE SERUM 98 mg/dL (74-106); POTASSIUM SERUM 4.1 mmol/L (3.5-5.1); SODIUM SERUM 138 mmol/L (136-145)
[2017-05-09 14:41] LABS: ALKALINE PHOSPHATASE 146 U/L (46-116); ALT/SGPT 41 U/L (14-59); AST/SGOT 36 U/L (15-37); TOTAL PROTEIN, SERUM 7.8 g/dL (6.4-8.2)
[2017-05-09 14:42] LABS: ALBUMIN 2.7 g/dL (3.4-5.0)
[2017-05-09 15:27] LABS: BAND NEUTROPHIL 11 % (0-10); MONOCYTE 2 % (0-7); SEGMENTED NEUTROPHILS 80 % (37-75)
[2017-05-09 15:28] LABS: rbc morphology (normal/abnorm) ABNORMAL (NORMAL)
[2017-05-09 16:11] LABS: CHOLESTEROL/HDL RATIO 3.4; MAGNESIUM 1.7 mg/dL (1.8-2.4); PHOSPHOROUS 3.5 mg/dL (2.5-4.9)
[2017-05-09 16:36] VITALS: BP 130/69
[2017-05-09 16:47] LABS: FREE T4 1.43 ng/dL (0.76-1.46); FREE THYROXINE INDEX 3.5 ug/dL (1.4-4.5); T4(THYROXINE) 9.2 ug/dL (4.7-13.3)
[2017-05-09 16:49] VITALS: Ht 162.6 cm; Wt 158.8 kg
[2017-05-09 16:58] LABS: T3 TOTAL 0.65 ng/mL
[2017-05-09 21:16] VITALS: BP 124/52
[2017-05-10 05:50] LABS: RED BLOOD CELLS 3.87 M/mm3 (4.10-5.10)
[2017-05-10 06:03] LABS: CALCIUM 7.7 mg/dL (8.5-10.1); CARBON DIOXIDE 25.2 mmol/L (21-32); CHLORIDE SERUM 106 mmol/L (98-107); CREATININE SERUM 0.8 mg/dL (0.6-1.0); GFR1 > 60 mL/min; GLUCOSE SERUM 95 mg/dL (74-106); MAGNESIUM 1.8 mg/dL (1.8-2.4); PHOSPHOROUS 3.9 mg/dL (2.5-4.9); POTASSIUM SERUM 3.8 mmol/L (3.5-5.1); SODIUM SERUM 137 mmol/L (136-145)
[2017-05-10 06:06] VITALS: BP 146/68
[2017-05-10 06:12] LABS: IRON 20 ug/dL (50-170); TOTAL IRON BINDING CAPACITY 160 ug/dL (250-450)
[2017-05-10 07:28] LABS: PLATELET COUNT 172 x10^3mcL (130-400)
[2017-05-10 07:29] LABS: RED CELL DISTRIBUTION WIDTH 19.2 % (11.5-14.5)
[2017-05-10 08:00] VITALS: BP 125/56
[2017-05-10 10:23] LABS: BAND NEUTROPHIL 12 % (0-10); BASOPHIL 0 % (0-2); MONOCYTE 1 % (0-7); SEGMENTED NEUTROPHILS 82 % (37-75)
[2017-05-10 10:24] LABS: rbc morphology (normal/abnorm) ABNORMAL (NORMAL)
[2017-05-10 10:25] LABS: PLATELET MORPHOLOGY PLATELETS DECREASED
[2017-05-10 12:07] VITALS: BP 163/58
[2017-05-10 18:46] VITALS: BP 111/70
[2017-05-10 21:12] VITALS: BP 123/78
[2017-05-11 05:31] VITALS: BP 113/84
[2017-05-11 06:19] LABS: PLATELET COUNT 176 x10^3mcL (130-400)
[2017-05-11 07:06] LABS: CARBON DIOXIDE 23.6 mmol/L (21-32); CHLORIDE SERUM 106 mmol/L (98-107); GLUCOSE SERUM 84 mg/dL (74-106); POTASSIUM SERUM 3.9 mmol/L (3.5-5.1); SODIUM SERUM 138 mmol/L (136-145)
[2017-05-11 07:07] LABS: CALCIUM 7.7 mg/dL (8.5-10.1); CREATININE SERUM 0.7 mg/dL (0.6-1.0); GFR1 > 60 mL/min
[2017-05-11 08:24] VITALS: BP 111/51
[2017-05-11 12:58] LABS: BAND NEUTROPHIL 8 % (0-10); BASOPHIL 0 % (0-2); MONOCYTE 16 % (0-7); SEGMENTED NEUTROPHILS 64 % (37-75); rbc morphology (normal/abnorm) ABNORMAL (NORMAL)
[2017-05-11 12:59] LABS: PLATELET MORPHOLOGY PLATELETS DECREASED
[2017-05-11 17:46] VITALS: BP 100/75
[2017-05-11 21:14] VITALS: BP 143/84
[2017-05-12 06:21] VITALS: BP 134/80
[2017-05-12 07:50] VITALS: BP 131/65
[2017-05-12] MEDS ORDERED: LEVAQUIN750 MG PO ×2 (11:15→11:18)
[2017-05-12] MEDS ORDERED: CLEOCIN HCL150 MG PO (11:17)
[2017-05-12] MEDS ORDERED: LAC PO (12:22)
[2017-05-12 12:32] VITALS: BP 131/65
== END 2017-05-12 13:15 | disposition home or self-care (01) | DRG 720 ==
LOC: ED 12:40 → MU 15:01 → DU 15:01 → MU 16:22 → DU 16:24 → MU 05-10 07:33
PROVIDERS: Emergency Medicine; Student in an Organized Health Care Education/Training Program; ADMIT Family Medicine
DX: A41.9 Sepsis, unspecified organism (principal); N17.0 Acute kidney failure with tubular necrosis; E43 Unspecified severe protein-calorie malnutrition; L03.311 Cellulitis of abdominal wall; I89.0 Lymphedema, not elsewhere classified; E83.42 Hypomagnesemia; D50.9 Iron deficiency anemia, unspecified; R15.9 Full incontinence of feces; R32 Unspecified urinary incontinence; F84.0 Autistic disorder; E66.01 Morbid (severe) obesity due to excess calories; Z68.44 Body mass index [BMI] 60.0-69.9, adult; Z94.89 Other transplanted organ and tissue status
CPT/HCPCS: 83880; 84439; J1885; J1956; J3475; J3490; J7030; Q0092

== ENCOUNTER 2017-06-15 18:27 | Emergency (ER) | payer OTHER ==
[~2017-06-15 18:27] MED LIST changes: +CLEOCIN HCL150 MG PO
[2017-06-15 21:24] LABS: PLATELET COUNT 260 x10^3mcL (130-400)
[2017-06-15 21:26] LABS: CALCIUM 8.2 mg/dL (8.5-10.1); CARBON DIOXIDE 28.4 mmol/L (21-32); CHLORIDE SERUM 105 mmol/L (98-107); CREATININE SERUM 0.8 mg/dL (0.6-1.0); GFR1 > 60 mL/min; GLUCOSE SERUM 107 mg/dL (74-106); POTASSIUM SERUM 4.1 mmol/L (3.5-5.1); SODIUM SERUM 140 mmol/L (136-145)
[2017-06-15 21:37] LABS: BASOPHIL % 0 % (0-2); RED CELL DISTRIBUTION WIDTH 17.4 % (11.5-14.5)
[2017-06-15 21:54] LABS: ALKALINE PHOSPHATASE 135 U/L (46-116); ALT/SGPT 55 U/L (14-59); AST/SGOT 43 U/L (15-37); BILIRUBIN TOTAL 0.4 mg/dL (0.20-1.00); HDL CHOLESTEROL 35 mg/dL (40-60); LIPASE 84 IU/L (73-393); MAGNESIUM 1.5 mg/dL (1.8-2.4); T4(THYROXINE) 10.8 ug/dL (4.7-13.3); TOTAL PROTEIN, SERUM 7.6 g/dL (6.4-8.2)
[2017-06-15 21:55] LABS: ALBUMIN 2.9 g/dL (3.4-5.0); AMYLASE 18 U/L (25-115); CHOLESTEROL 119 mg/dL (<200)
[2017-06-15 22:03] LABS: microscopic required? NO
[2017-06-15 22:16] LABS: UA SPECIFIC GRAVITY 1.025 (1.005-1.035); urine erythrocyte NEGATIVE (NEGATIVE)
[2017-06-15 22:24] LABS: AMPHETAMINE QUAL UR NONE DETECTED (NEG <=1000)
[2017-06-16 00:18] VITALS: BP 125/50
[2017-06-16] MEDS ORDERED: LEVOTHYROXINE0.05 M2 PO (13:30)
[2017-06-16] MEDS ORDERED: NEOMYCIN SULFA500 MG PO (13:31)
== END 2017-06-16 00:18 | disposition home or self-care (01) ==
LOC: ED 18:27
PROVIDERS: Emergency Medicine
DX: K72.90 Hepatic failure, unspecified without coma (principal); R45.1 Restlessness and agitation; E46 Unspecified protein-calorie malnutrition; E03.9 Hypothyroidism, unspecified; F84.0 Autistic disorder; I89.0 Lymphedema, not elsewhere classified; Z66 Do not resuscitate; Z88.0 Allergy status to penicillin; Z88.1 Allergy status to other antibiotic agents; Z91.012 Allergy to eggs
CPT/HCPCS: 82962; 83880; G0480; J1956; J7030

== ENCOUNTER 2017-06-16 10:59 | Inpatient (IN) | payer OTHER ==
[~2017-06-16] VITALS: Ht 162.6 cm; Wt 176.4 kg
[2017-06-16] VITALS (7 sets, daily range): BP systolic 81–104; BP diastolic 28–54; Ht 162.6 cm; Wt 176.4 kg
--- NOTE | 2017-06-16 11:39 | NUR ---
PT PRESENTS TO THE ER THIS MORNING FOR CULTURE CALL BACK. PT WAS HERE YESTERDAY FOR CHILLS AND GENERALIZED WEAKNESS PER MOM. PT APEARS TO BE PALE ACCORDING TO MOM. RESPIRATIONS EVEN AND UNLABORED. VITAL SIGNS STABLE. PT HAS A HX OF LYMPODEMA OF BILATERAL LEGS. NO ACUTE DISTRESS NOTED.
--- NOTE | 2017-06-16 12:18 | NUR ---
PT APPEARS TO BE RESTING COMFORTABLY. PT BECOMES AGITATED WHEN TRYING TO OBTAIN BP. VITAL SIGNS STABLE. NO ACUTE DISTRESS NOTED.
--- NOTE | 2017-06-16 12:37 | NUR ---
LAB AT BEDSIDE FOR BLOOD DRAW
--- NOTE | 2017-06-16 13:20 | NUR ---
UNABLE TO COLLECT URINE FROM PT PT FAMILY REFUSES STRAIGHT CATH, DR DENNEY AWARE
[2017-06-16 13:30] LABS: PLATELET COUNT 243 x10^3mcL (130-400)
[2017-06-16] MEDS ORDERED: LEVOTHYROXINE0.05 M2 PO (13:30)
[2017-06-16] MEDS ORDERED: NEOMYCIN SULFA500 MG PO (13:31)
--- NOTE | 2017-06-16 13:32 | NUR ---
EMT AT BEDSIDE FOR EKG
--- NOTE | 2017-06-16 14:00 | NUR ---
REPORT GIVEN TO GEE ON MED/TELE.
--- NOTE | 2017-06-16 14:06 | NUR ---
DR. DENNEY NOTIFIED OF PT LACTIC ACID LEVEL BEING 2.2
[2017-06-16 14:16] LABS: ALBUMIN 2.6 g/dL (3.4-5.0); BILIRUBIN TOTAL 0.98 mg/dL (0.20-1.00); CARBON DIOXIDE 24.4 mmol/L (21-32); CREATININE SERUM 1.6 mg/dL (0.6-1.0); POTASSIUM SERUM 4.8 mmol/L (3.5-5.1); TOTAL PROTEIN, SERUM 6.5 g/dL (6.4-8.2)
[2017-06-16 14:17] LABS: BAND NEUTROPHIL 7 % (0-10); BASOPHIL 0 % (0-2); MONOCYTE 2 % (0-7); SEGMENTED NEUTROPHILS 91 % (37-75)
[2017-06-16 14:18] LABS: PLATELET MORPHOLOGY PLATELETS NORMAL; rbc morphology (normal/abnorm) ABNORMAL (NORMAL)
--- NOTE | 2017-06-16 14:30 | NUR ---
RECEIVED PT FROM ED VIA MANDEEP, CAME IN DUE TO WEAKNESS, CHILLS AND RLE PAIN, PT'S MOTHER STATED THAT SHE WAS CALLED FOR A GROWTH IN PT'S BLOOD CULTURE. PT IS AWAKE AND ALERT. NO SOB NOTED. NO S/S OF CHEST PAIN/PRESSURE, SINUS TACHYCARDIA ON THE MONITOR, HR AT 132. NO S/S OF ABDOMINAL DISCOMFORT. W/ HX OF LYMPHEDEMA ON BLE. W/ OPEN WOUND ON THE RLE AND MILD REDNESS AND WARM TO TOUCH ON RLE. W/ DARK DISCOLORATION ON BLE. SIDE RAILS UPX2. CALL LIGHT ON REACH. MOTHER AT BEDSIDE. RECEIVED PT FROM ED W/ NS AND HARRISON ONGOING. PRIMARY NURSE AT BEDSIDE FOR CONTINUITY OF CARE
[2017-06-16 14:32] LABS: MAGNESIUM 1.5 mg/dL (1.8-2.4); PHOSPHOROUS 3.9 mg/dL (2.5-4.9)
[2017-06-16 14:34] LABS: CHOLESTEROL/HDL RATIO 2.3
[2017-06-16 14:40] LABS: FREE T4 1.63 ng/dL (0.76-1.46); FREE THYROXINE INDEX 3.8 ug/dL (1.4-4.5); T4(THYROXINE) 10.2 ug/dL (4.7-13.3)
[2017-06-16 14:41] LABS: T3 TOTAL 0.41 ng/mL
--- NOTE | 2017-06-16 17:47 | NUR ---
BP = 83/28. MAP = 43. LACTIC ACID = 3.4. DR GIRARD MADE AWARE.
--- NOTE | 2017-06-16 18:30 | NUR ---
BP = 84/42, MAP = 54. ST 123 ON TELE MONITOR. CHARGE NURSE AWARE. BOLUS OF NS INFUSING NOW. WILL CONTINUE TO MONITOR.
--- NOTE | 2017-06-16 19:10 | NUR ---
RECEIVED REPORT FROM FLASH FLYNN WILL ENDORSE CARE
--- NOTE | 2017-06-16 19:10 | NUR ---
BP = 81/52. MAP = 63. DR CARSON MADE AWARE AND ORDERED 1L BOLUS OF NS. BOLUS STARTED.
--- NOTE | 2017-06-16 19:23 | NUR ---
1.3L BOLUS OF NS GIVEN. BP = 97/52, MAP = 67.
--- NOTE | 2017-06-16 20:58 | NUR ---
PT LYING IN BED, ALERT BUT NONVERBAL, ANXIOUS, IV PATENT AND FLUSHING, MOTHER AT BEDSIDE. OPEN WOUND RLF. HX AUTISM. NO OTHER COMPLAINTS AT THIS TIME. WILL CONTINUE TO MONITOR.
--- NOTE | 2017-06-17 00:38 | NUR ---
PT SLEEPING, IN BED NO S/S OF DISTRESS, WILL CONTINUE TO MONITOR
[2017-06-17 05:35] VITALS: BP 135/53
[2017-06-17 07:12] LABS: CALCIUM 7.7 mg/dL (8.5-10.1); CARBON DIOXIDE 22.1 mmol/L (21-32); CREATININE SERUM 1.8 mg/dL (0.6-1.0); POTASSIUM SERUM 4.5 mmol/L (3.5-5.1)
[2017-06-17 07:14] LABS: PLATELET COUNT 190 x10^3mcL (130-400)
--- NOTE | 2017-06-17 07:16 | NUR ---
REPORT GIVEN TO FLASH FLYNN WILL ENDORSE CARE
[2017-06-17 07:18] LABS: IRON 13 ug/dL (50-170); TOTAL IRON BINDING CAPACITY 159 ug/dL (250-450)
--- NOTE | 2017-06-17 08:00 | NUR ---
RECEIVED PT IN BED ALERT, NON-VERBAL. ST 130 ON TELE MONITOR. NO S/S OF PAIN OR DISCOMFORT. DENIES ANY GI UPSET. INCONTINENT. HX LYMPHEDEMA. EDEMA NOTED TO BLE. SMALL WOUND NOTED TO RLE. R THIGH WARM TO TOUCH. GENERALIZED WEAKNESS. MOM AT BEDSIDE. INSTRUCTED TO USE CALL LIGHT WHEN IN NEED OF ASSISTANCE.
[2017-06-17 08:09] LABS: BASOPHIL % 0 % (0-2); RED CELL DISTRIBUTION WIDTH 17.9 % (11.5-14.5)
[2017-06-17 10:07] VITALS: BP 108/35
[2017-06-17 10:52] VITALS: BP 116/72
[2017-06-17 13:24] VITALS: BP 116/45
[2017-06-17 17:08] VITALS: BP 104/53; BP 119/73
--- NOTE | 2017-06-17 17:56 | NUR ---
PT IN BED, MOTHER AT BEDSIDE. NORCO PO GIVEN PT APPEARED RESTLESS AND WOULD MOAN OCCASIONALLY. PT APPEARS MORE CALM AT THIS TIME. WILL CONTINUE TO MONITOR.
--- NOTE | 2017-06-17 20:00 | NUR ---
PATIENT RECEIVED RESTING IN BED. MENTALLY CHALLENGED. RESPIRATION EVEN AND UNLABORED, ON ROOM AIR. ONGOING 0.9% NS AT 126 CC/HR INFUSING WELL AT THE LEFT FOREARM. INCONTINENT OF URINE. GENERALIZED WEAKNESS. NEEDS ASSISTANCE WITH ADL'S. +LYMPHEDEMA TO BLE, BLE PRESENCE OF BLISTERS AND DISCOLORATION, SMALL OPEN WOUND TO RLE. ON TELE #6. MOTHER AT THE BEDSIDE. ON CONTACT ISOLATION FOR HX OF ESBL IN URINE. WILL CONTINUE TO MONITOR.
--- NOTE | 2017-06-18 05:54 | NUR ---
PATIENT DOZING ON AND OFF. RESPIRATION EVEN AND UNLABORED, ON ROOM AIR. NO SIGN OF DISCOMFORT NOTED. IV SITE NO SIGN OF INFILTRATION. ASSISTED WITH NEEDS. SAFETY OBSERVED. PLACED CALL LIGHT WITHIN REACH. KEPT CLEAN AND DRY. MAINTAINED ON CONTACT ISOLATION FOR HX OF ESBL IN URINE. MOTHER STAYED OVERNIGHT.
[2017-06-18 06:46] VITALS: BP 98/58
[2017-06-18 07:01] LABS: CARBON DIOXIDE 21.8 mmol/L (21-32); CREATININE SERUM 1.6 mg/dL (0.6-1.0); MAGNESIUM 1.8 mg/dL (1.8-2.4); POTASSIUM SERUM 4.6 mmol/L (3.5-5.1)
--- NOTE | 2017-06-18 07:20 | NUR ---
PT IS ON CONTACT ISOLATION. PT SEEN REST ON BED, MOANING. PT'S MOM AT BED SIDE. PT NON VEBAL, PT'S MOM STATED PT IS NOT IN PAIN MORE BECAUSE OF ANXIOUS. PT BREATHING ON RA, EVEN, UNLABORED. IV SITE PATENT, INTACT. IVF INFUSING WELL.
[2017-06-18 08:05] VITALS: BP 113/76
[2017-06-18 09:12] LABS: BASOPHIL % 0.1 % (0-2); PLATELET COUNT 189 x10^3mcL (130-400)
[2017-06-18 09:14] LABS: RED CELL DISTRIBUTION WIDTH 18.4 % (11.5-14.5)
[2017-06-18 10:56] VITALS: BP 113/76
[2017-06-18 13:28] VITALS: BP 136/59
--- NOTE | 2017-06-18 18:14 | NUR ---
PT'S IV INFILTRATED. NO IV INSERTION SUCCESSFULLY AFTER MULTIPLE TRIES. PT'S MOM REQUEST SWITCH PT'S IV ANTIBIOTICS TO PO. MADE DR. MCMANUS AWARE. NORCO GIVEN PER PRN ORDER TO HELP PT RELAXE.
[2017-06-18 18:19] VITALS: BP 122/65
--- NOTE | 2017-06-18 19:22 | NUR ---
PHARMACY CALLED TO VERIFIED PT'S PO ATIVAN AND ORAL ANTIBIOTICS. REPORTS GIVEN TO RECEIVING NURSE. PT'S MOM AT BED SIDE. PT STAY CALM, NO DISTRESSED NOTED AT THIS TIME.
--- NOTE | 2017-06-18 19:30 | NUR ---
PT IS ALERT BUT NON VERBAL, DUE TO AUTISM. UNABLE TO TELL WHAT SHE NEEDS. MOM AT BEDSIDE, LUNG SOUND CLEAR BILATERAL, NO COUGH, NO S/S OF SOB, PT IS ON TELE 6, ST, NO S/S OF CHEST PAIN. BOWEL SOUND PRESENT ALL 4 QUADRANTS, NO DISTENTION, NO TENDER. PT HAS LYMPHEDEMA BLE, SMALL OPEN WOUND TO RLE, PT NEED TOTAL CARE. NO IV ACCESS, MADE AWARE, ALL ADLS ASSIST, ALL NEED MET, CALL LIGHT IN REACH, WILL CONTINUE TO MONITOR.
[2017-06-18 21:41] VITALS: BP 139/70
--- NOTE | 2017-06-19 04:58 | NUR ---
PT IS AWAKE, NON VERBAL, NO S/S OF RESPIRATORY DISTRESS, NO S/S OF PAIN OR DISCOMFORT, MOTHER AT BEDSIDE, ALL ADLS ASSIST, ALL NEED MET, CALL LIGHT IN REACH, WILL CONTINUE TO MONITOR.
[2017-06-19 06:25] LABS: BASOPHIL % 0.5 % (0-2); PLATELET COUNT 205 x10^3mcL (130-400)
[2017-06-19 06:33] LABS: RED CELL DISTRIBUTION WIDTH 18.7 % (11.5-14.5)
[2017-06-19 06:49] LABS: CALCIUM 7.9 mg/dL (8.5-10.1); CARBON DIOXIDE 24.6 mmol/L (21-32); CREATININE SERUM 1.2 mg/dL (0.6-1.0); MAGNESIUM 1.8 mg/dL (1.8-2.4); PHOSPHOROUS 4.6 mg/dL (2.5-4.9); POTASSIUM SERUM 4.7 mmol/L (3.5-5.1)
--- NOTE | 2017-06-19 08:00 | NUR ---
AAO TO SELF, NON VERBAL EXCEPT FOR GROANING AND WITHDRAWL TO TOUCH/CARE. LUNGS CTA. NO SOB. O2 SAT ON RA 93%. BS'S ACTIVE TIMES 4. BLE VERY EDEMETOUS WITH THICK BROWN SKIN AND CAULIFLOWER TYPE GROWTHS AND FOUL SMELL. HAS ONE WOUND TO RIGHT ANKLE WITH SMALL AMOUNT OF BLOOD ON SITE. NO IV, MOTHER REFUSES SHE WAS POKED MANY TIMES AND SHE HAS HARD VEINS TO START IV WITH.
--- NOTE | 2017-06-19 09:00 | NUR ---
MEDICAL ROUNDS WERE DONE WITH DR RENAE AND THE MEDICINE TEAM AT 0900. THE PLAN TODAY IS TO DC HER HOME WITH MOM.
[2017-06-19 10:54] VITALS: BP 120/89
[2017-06-19] MEDS ORDERED: LEV500 PO (14:25)
[2017-06-19] MEDS ORDERED: CLINDAMYCIN HC300 MG PO (14:26)
[2017-06-19] MEDS ORDERED: LAC PO (14:27)
[2017-06-19 14:41] VITALS: BP 120/89
[2017-06-19] MEDS ORDERED: FERROUS SULFAT325 M2 PO (14:43)
[2017-06-19] MEDS ORDERED: VITAMIN C PURE500 MG PO (14:43)
--- NOTE | 2017-06-19 15:04 | NUR ---
NO IV SITE. TOOK PHOTO OF BLE EDEMA AND RIGHT ANKLE WOUND. GAVE MOTHER DISCHARGE INSTRUCTIONS, MEDS SENT TO PHARMACY.
== END 2017-06-19 15:16 | disposition home health service (06) | DRG 383 ==
LOC: ED 10:59 → DU 12:41
PROVIDERS: Emergency Medicine; ADMIT Family Medicine
DX: L03.115 Cellulitis of right lower limb (principal); N17.0 Acute kidney failure with tubular necrosis; E43 Unspecified severe protein-calorie malnutrition; Z94.89 Other transplanted organ and tissue status; B95.62 Methicillin resistant Staphylococcus aureus infection as the cause of diseases classified elsewhere; I89.0 Lymphedema, not elsewhere classified; E87.1 Hypo-osmolality and hyponatremia; F84.0 Autistic disorder; E83.42 Hypomagnesemia; E03.9 Hypothyroidism, unspecified; D50.9 Iron deficiency anemia, unspecified; E66.01 Morbid (severe) obesity due to excess calories; Z68.44 Body mass index [BMI] 60.0-69.9, adult; Z66 Do not resuscitate
CPT/HCPCS: 83880; 84439; J1956; J2060; J3490; J7030; Q0092

== ENCOUNTER 2017-06-19 17:21 | Emergency (ER) | payer OTHER ==
[~2017-06-19 17:21] MED LIST changes: +FERROUS SULFAT325 M2 PO; +LEV500 PO; +LEVOTHYROXINE0.05 M2 PO; +NEOMYCIN SULFA500 MG PO; +VITAMIN C PURE500 MG PO
[2017-06-19 17:44] VITALS: BP 133/94
== END 2017-06-19 19:13 | disposition home or self-care (01) ==
LOC: ED 17:21
DX: Z00.8 Encounter for other general examination (principal); E66.01 Morbid (severe) obesity due to excess calories; E03.9 Hypothyroidism, unspecified; F84.0 Autistic disorder; G20 Parkinson's disease

== ENCOUNTER 2017-07-11 07:53 | Emergency (ER) | payer OTHER ==
[~2017-07-11] VITALS: Ht 165.1 cm; Wt 163.3 kg
[2017-07-11 09:41] VITALS: BP 142/75
== END 2017-07-11 10:07 | disposition home or self-care (01) ==
LOC: ED 07:53
DX: L03.311 Cellulitis of abdominal wall (principal); L03.116 Cellulitis of left lower limb; I89.0 Lymphedema, not elsewhere classified; Z88.0 Allergy status to penicillin; Z88.1 Allergy status to other antibiotic agents; Z88.8 Allergy status to other drugs, medicaments and biological substances
CPT/HCPCS: J1885

== ENCOUNTER 2017-07-11 18:31 | Inpatient (IN) | payer OTHER ==
[~2017-07-11] VITALS: Ht 162.6 cm; Wt 168.3 kg
[2017-07-11 19:42] LABS: BASOPHIL % 0.2 % (0-2); PLATELET COUNT 238 x10^3mcL (130-400)
[2017-07-11 19:43] LABS: RED CELL DISTRIBUTION WIDTH 20.2 % (11.5-14.5)
[2017-07-11 19:47] LABS: CALCIUM 8.3 mg/dL (8.5-10.1); CARBON DIOXIDE 26.8 mmol/L (21-32); CHLORIDE SERUM 103 mmol/L (98-107); CREATININE SERUM 0.9 mg/dL (0.6-1.0); GFR1 > 60 mL/min; GLUCOSE SERUM 100 mg/dL (74-106); SODIUM SERUM 136 mmol/L (136-145)
[2017-07-11 19:52] LABS: ALBUMIN 2.3 g/dL (3.4-5.0); ALKALINE PHOSPHATASE 129 U/L (46-116); ALT/SGPT 22 U/L (14-59); AST/SGOT 19 U/L (15-37); BILIRUBIN TOTAL 1.44 mg/dL (0.20-1.00); TOTAL PROTEIN, SERUM 7.1 g/dL (6.4-8.2)
[2017-07-11 20:15] LABS: ovalocyte/elliptocyte 1+; rbc morphology (normal/abnorm) ABNORMAL (NORMAL)
[2017-07-11 22:26] LABS: MAGNESIUM 1.7 mg/dL (1.8-2.4)
[2017-07-11 22:28] LABS: CHOLESTEROL/HDL RATIO 2.8
[2017-07-11 22:31] LABS: FREE T4 1.92 ng/dL (0.76-1.46); T3 TOTAL 1.2 ng/mL; T4(THYROXINE) 10.9 ug/dL (4.7-13.3)
[2017-07-11 22:36] VITALS: BP 127/54
[2017-07-12 00:30] VITALS: BP 120/56
[2017-07-12 06:07] VITALS: BP 131/81
[2017-07-12 06:47] LABS: CALCIUM 7.7 mg/dL (8.5-10.1); CHLORIDE SERUM 107 mmol/L (98-107); CREATININE SERUM 0.8 mg/dL (0.6-1.0); GFR1 > 60 mL/min; GLUCOSE SERUM 92 mg/dL (74-106); POTASSIUM SERUM 4.4 mmol/L (3.5-5.1); SODIUM SERUM 135 mmol/L (136-145)
[2017-07-12 08:30] VITALS: BP 112/75
[2017-07-12 09:53] LABS: PLATELET COUNT 181 x10^3mcL (130-400)
[2017-07-12 10:31] LABS: RED CELL DISTRIBUTION WIDTH 20.2 % (11.5-14.5)
[2017-07-12 11:00] LABS: BAND NEUTROPHIL 8 % (0-10); BASOPHIL 0 % (0-2); METAMYELOCTE 1 % (0-2); MONOCYTE 3 % (0-7); SEGMENTED NEUTROPHILS 82 % (37-75)
[2017-07-12 11:01] LABS: PLATELET MORPHOLOGY PLATELETS NORMAL; rbc morphology (normal/abnorm) ABNORMAL (NORMAL)
[2017-07-12 11:02] LABS: ovalocyte/elliptocyte 1+
[2017-07-12 11:36] VITALS: BP 114/65
[2017-07-12 11:43] VITALS: Ht 162.6 cm; Wt 168.3 kg
[2017-07-12 20:26] VITALS: BP 128/57
[2017-07-13 05:45] VITALS: BP 118/68
[2017-07-13 07:29] LABS: PLATELET COUNT 189 x10^3mcL (130-400)
[2017-07-13 07:45] LABS: CALCIUM 7.9 mg/dL (8.5-10.1); CARBON DIOXIDE 21.9 mmol/L (21-32); CHLORIDE SERUM 107 mmol/L (98-107); CREATININE SERUM 0.7 mg/dL (0.6-1.0); GFR1 > 60 mL/min; GLUCOSE SERUM 82 mg/dL (74-106); MAGNESIUM 1.8 mg/dL (1.8-2.4); SODIUM SERUM 137 mmol/L (136-145)
[2017-07-13 08:00] LABS: BASOPHIL % 0 % (0-2); RED CELL DISTRIBUTION WIDTH 20.9 % (11.5-14.5)
[2017-07-13 08:01] LABS: ovalocyte/elliptocyte 1+; rbc morphology (normal/abnorm) ABNORMAL (NORMAL)
[2017-07-13 09:01] VITALS: BP 128/52
[2017-07-13 14:26] VITALS: BP 108/69
[2017-07-13 17:37] VITALS: BP 145/70
[2017-07-13 21:45] VITALS: BP 135/88
[2017-07-14 06:08] VITALS: BP 136/88
[2017-07-14 06:10] LABS: BASOPHIL % 0.2 % (0-2); PLATELET COUNT 205 x10^3mcL (130-400)
[2017-07-14 06:16] LABS: RED CELL DISTRIBUTION WIDTH 20.4 % (11.5-14.5)
[2017-07-14 06:30] LABS: CALCIUM 7.7 mg/dL (8.5-10.1); CARBON DIOXIDE 23.6 mmol/L (21-32); CHLORIDE SERUM 108 mmol/L (98-107); CREATININE SERUM 0.6 mg/dL (0.6-1.0); GFR1 > 60 mL/min; GLUCOSE SERUM 71 mg/dL (74-106); POTASSIUM SERUM 3.7 mmol/L (3.5-5.1); SODIUM SERUM 139 mmol/L (136-145)
[2017-07-14 08:17] LABS: rbc morphology (normal/abnorm) ABNORMAL (NORMAL)
[2017-07-14 09:50] VITALS: BP 135/67
[2017-07-14] MEDS ORDERED: CLE150 PO (10:38)
[2017-07-14] MEDS ORDERED: LEV500 PO (10:40)
[2017-07-14] MEDS ORDERED: LAC PO (10:40)
[2017-07-14] MEDS ORDERED: BACTRIM DS1 TAB PO (11:10)
[2017-07-14 12:01] VITALS: BP 135/67
== END 2017-07-14 12:55 | disposition home health service (06) | DRG 720 ==
LOC: ED 18:31 → DU 21:06 → MU 21:06 → DU 21:06 → MU 07-13 10:16
PROVIDERS: Emergency Medicine; ADMIT Family Medicine
DX: A41.9 Sepsis, unspecified organism (principal); N17.0 Acute kidney failure with tubular necrosis; E43 Unspecified severe protein-calorie malnutrition; L03.311 Cellulitis of abdominal wall; L03.116 Cellulitis of left lower limb; R65.20 Severe sepsis without septic shock; I10 Essential (primary) hypertension; F84.0 Autistic disorder; Z68.44 Body mass index [BMI] 60.0-69.9, adult; E66.01 Morbid (severe) obesity due to excess calories; E83.42 Hypomagnesemia; E87.1 Hypo-osmolality and hyponatremia; D64.9 Anemia, unspecified; I16.0 Hypertensive urgency
CPT/HCPCS: 82962; 83880; 84439; 97110-GP; 97530-GP; J1170; J1956; J2060; J3490; J7030; Q0092

== ENCOUNTER 2017-08-27 09:16 | Inpatient (IN) | payer OTHER ==
[~2017-08-27] VITALS: Ht 162.6 cm; Wt 168.8 kg
[~2017-08-27 09:16] MED LIST changes: +BACTRIM DS1 TAB PO; +CLE150 PO
[2017-08-27 09:31] VITALS: Ht 162.6 cm; Wt 168.8 kg
[2017-08-27 10:16] LABS: PLATELET COUNT 277 x10^3mcL (130-400)
[2017-08-27 10:18] LABS: RED CELL DISTRIBUTION WIDTH 16.6 % (11.5-14.5)
[2017-08-27 10:25] LABS: CALCIUM 8.2 mg/dL (8.5-10.1); CARBON DIOXIDE 24.6 mmol/L (21-32); CHLORIDE SERUM 104 mmol/L (98-107); CREATININE SERUM 1.1 mg/dL (0.6-1.0); GFR1 > 60 mL/min; GLUCOSE SERUM 93 mg/dL (74-106); POTASSIUM SERUM 4.3 mmol/L (3.5-5.1); SODIUM SERUM 136 mmol/L (136-145)
[2017-08-27 10:36] LABS: ALBUMIN 2.3 g/dL (3.4-5.0); ALKALINE PHOSPHATASE 99 U/L (46-116); ALT/SGPT 23 U/L (14-59); AST/SGOT 23 U/L (15-37); BILIRUBIN TOTAL 0.93 mg/dL (0.20-1.00); C REACTIVE PROTEIN 17.3 mg/dL (<=0.9); TOTAL PROTEIN, SERUM 6.8 g/dL (6.4-8.2)
[2017-08-27 10:37] LABS: FREE T4 1.64 ng/dL (0.76-1.46); FREE THYROXINE INDEX 2.9 ug/dL (1.4-4.5); T4(THYROXINE) 8.3 ug/dL (4.7-13.3)
[2017-08-27 11:01] LABS: BAND NEUTROPHIL 27 % (0-10); BASOPHIL 0 % (0-2); SEGMENTED NEUTROPHILS 67 % (37-75)
[2017-08-27 11:03] LABS: PLATELET MORPHOLOGY PLATELETS NORMAL; rbc morphology (normal/abnorm) ABNORMAL (NORMAL)
[2017-08-27 11:13] LABS: ERYTHROCYTE SED RATE 43 mm/hr (0-20)
[2017-08-27 12:25] VITALS: BP 107/54
[2017-08-27 13:00] LABS: MAGNESIUM 1.5 mg/dL (1.8-2.4); PHOSPHOROUS 4.2 mg/dL (2.5-4.9)
[2017-08-27 13:57] LABS: T3 TOTAL 0.62 ng/mL
[2017-08-27 18:17] VITALS: BP 111/55
[2017-08-27 21:54] VITALS: BP 141/47
[2017-08-28 05:42] VITALS: BP 105/41
[2017-08-28 07:32] LABS: PLATELET COUNT 243 x10^3mcL (130-400)
[2017-08-28 07:39] LABS: RED CELL DISTRIBUTION WIDTH 18.5 % (11.5-14.5)
[2017-08-28 08:38] LABS: BAND NEUTROPHIL 19 % (0-10); MONOCYTE 2 % (0-7); SEGMENTED NEUTROPHILS 75 % (37-75); rbc morphology (normal/abnorm) ABNORMAL (NORMAL)
[2017-08-28 10:16] VITALS: BP 99/60
[2017-08-28 11:01] LABS: CALCIUM 7.8 mg/dL (8.5-10.1); CARBON DIOXIDE 23.5 mmol/L (21-32); CREATININE SERUM 1.8 mg/dL (0.6-1.0); MAGNESIUM 1.7 mg/dL (1.8-2.4); PHOSPHOROUS 5.8 mg/dL (2.5-4.9)
[2017-08-28 11:06] LABS: POTASSIUM SERUM 5.6 mmol/L (3.5-5.1)
[2017-08-28 17:55] VITALS: BP 100/45
[2017-08-28 21:01] VITALS: BP 100/40
[2017-08-29 05:50] VITALS: BP 107/44
[2017-08-29 09:18] LABS: PLATELET COUNT 253 x10^3mcL (130-400); RED CELL DISTRIBUTION WIDTH 18.9 % (11.5-14.5)
[2017-08-29 09:26] LABS: CALCIUM 8.1 mg/dL (8.5-10.1); CARBON DIOXIDE 24.5 mmol/L (21-32); CREATININE SERUM 2.7 mg/dL (0.6-1.0); PHOSPHOROUS 6.4 mg/dL (2.5-4.9); POTASSIUM SERUM 5.2 mmol/L (3.5-5.1)
[2017-08-29 09:40] VITALS: BP 105/45
[2017-08-29 10:42] LABS: BAND NEUTROPHIL 10 % (0-10); BASOPHIL 0 % (0-2); MONOCYTE 2 % (0-7); SEGMENTED NEUTROPHILS 82 % (37-75)
[2017-08-29 10:43] LABS: rbc morphology (normal/abnorm) ABNORMAL (NORMAL)
[2017-08-29 13:26] VITALS: BP 113/38
[2017-08-29 19:30] VITALS: BP 128/72
[2017-08-30 05:33] VITALS: BP 124/60
[2017-08-30 07:38] LABS: CARBON DIOXIDE 22.5 mmol/L (21-32); CREATININE SERUM 2.8 mg/dL (0.6-1.0); PHOSPHOROUS 5.8 mg/dL (2.5-4.9)
[2017-08-30 08:01] LABS: PLATELET COUNT 250 x10^3mcL (130-400); RED CELL DISTRIBUTION WIDTH 19.1 % (11.5-14.5)
[2017-08-30 09:05] LABS: UA SPECIFIC GRAVITY >=1.030 (1.005-1.035); microscopic required? YES; urine erythrocyte 3+ (NEGATIVE)
[2017-08-30 09:58] VITALS: BP 120/57
[2017-08-30 12:00] LABS: ATYPICAL LYMPH 1 %; BAND NEUTROPHIL 2 % (0-10); BASOPHIL 0 % (0-2); MONOCYTE 2 % (0-7); SEGMENTED NEUTROPHILS 92 % (37-75)
[2017-08-30 12:01] LABS: PLATELET MORPHOLOGY PLATELETS NORMAL; rbc morphology (normal/abnorm) ABNORMAL (NORMAL)
[2017-08-30 16:39] VITALS: BP 106/55
[2017-08-30 17:43] LABS: CALCIUM 8.3 mg/dL (8.5-10.1); CARBON DIOXIDE 22.5 mmol/L (21-32); CREATININE SERUM 2.9 mg/dL (0.6-1.0); POTASSIUM SERUM 5.1 mmol/L (3.5-5.1)
[2017-08-30 21:21] VITALS: BP 129/57
[2017-08-31 06:10] VITALS: BP 125/61
[2017-08-31 07:56] LABS: CALCIUM 8.3 mg/dL (8.5-10.1); CARBON DIOXIDE 22.9 mmol/L (21-32); CREATININE SERUM 2.8 mg/dL (0.6-1.0); POTASSIUM SERUM 5.1 mmol/L (3.5-5.1)
[2017-08-31 08:11] LABS: PLATELET COUNT 236 x10^3mcL (130-400)
[2017-08-31 08:17] LABS: BASOPHIL % 0 % (0-2); RED CELL DISTRIBUTION WIDTH 19.2 % (11.5-14.5)
[2017-08-31 10:19] VITALS: BP 109/61
[2017-08-31 17:31] VITALS: BP 119/62
[2017-08-31 22:56] VITALS: BP 126/71
[2017-09-01 07:07] VITALS: BP 128/68
[2017-09-01 10:00] VITALS: BP 122/54
[2017-09-01 10:51] LABS: BASOPHIL % 0.2 % (0-2); PLATELET COUNT 250 x10^3mcL (130-400)
[2017-09-01 10:52] LABS: RED CELL DISTRIBUTION WIDTH 18.4 % (11.5-14.5)
[2017-09-01 10:53] LABS: rbc morphology (normal/abnorm) ABNORMAL (NORMAL)
[2017-09-01 11:11] LABS: MAGNESIUM 2.1 mg/dL (1.8-2.4); PHOSPHOROUS 5.3 mg/dL (2.5-4.9)
[2017-09-01 11:12] LABS: CALCIUM 8.1 mg/dL (8.5-10.1); CREATININE SERUM 2.2 mg/dL (0.6-1.0); POTASSIUM SERUM 4.5 mmol/L (3.5-5.1)
[2017-09-01 16:46] VITALS: BP 120/55
[2017-09-01 21:27] VITALS: BP 112/55
[2017-09-02 05:33] VITALS: BP 107/74
[2017-09-02 09:31] LABS: BASOPHIL % 0.2 % (0-2); PLATELET COUNT 257 x10^3mcL (130-400)
[2017-09-02 09:45] LABS: CALCIUM 8.2 mg/dL (8.5-10.1); CARBON DIOXIDE 24.2 mmol/L (21-32); CREATININE SERUM 1.7 mg/dL (0.6-1.0); PHOSPHOROUS 4.5 mg/dL (2.5-4.9); POTASSIUM SERUM 4.1 mmol/L (3.5-5.1)
[2017-09-02 09:51] VITALS: BP 98/58
[2017-09-02 10:33] LABS: RED CELL DISTRIBUTION WIDTH 18.4 % (11.5-14.5)
[2017-09-02 17:25] VITALS: BP 131/90
[2017-09-02 21:24] VITALS: BP 125/68
[2017-09-03 05:38] VITALS: BP 124/70
[2017-09-03 07:10] LABS: CALCIUM 8.1 mg/dL (8.5-10.1); CARBON DIOXIDE 26.2 mmol/L (21-32); CREATININE SERUM 1.3 mg/dL (0.6-1.0); POTASSIUM SERUM 3.8 mmol/L (3.5-5.1)
[2017-09-03 07:47] LABS: BASOPHIL % 0.1 % (0-2); PLATELET COUNT 226 x10^3mcL (130-400); RED CELL DISTRIBUTION WIDTH 18.3 % (11.5-14.5); rbc morphology (normal/abnorm) ABNORMAL (NORMAL)
[2017-09-03] MEDS ORDERED: BACTRIM DS1 TAB PO (10:12)
[2017-09-03] MEDS ORDERED: LEVOFLOXACIN250 MG PO (10:17)
[2017-09-03] MEDS ORDERED: LAC PO (10:18)
[2017-09-03] MEDS ORDERED: L40 PO (10:22)
[2017-09-03] MEDS ORDERED: MYCP TOP (10:23)
[2017-09-03 14:11] VITALS: BP 124/70
== END 2017-09-03 15:05 | disposition home health service (06) | DRG 720 ==
LOC: ED 09:16 → DU 11:16 → MU 11:16 → DU 11:57 → MU 08-29 09:42
PROVIDERS: Family Medicine; Internal Medicine; Specialist; Student in an Organized Health Care Education/Training Program; Surgery
PROC: 05HM33Z Insertion of Infusion Device into Right Internal Jugular Vein, Percutaneous Approach (ICD-10-PCS; principal; 2017-08-29 14:30)
DX: A40.0 Sepsis due to streptococcus, group A (principal); N17.0 Acute kidney failure with tubular necrosis; E43 Unspecified severe protein-calorie malnutrition; R65.20 Severe sepsis without septic shock; E83.42 Hypomagnesemia; R47.01 Aphasia; E87.5 Hyperkalemia; E83.39 Other disorders of phosphorus metabolism; E66.01 Morbid (severe) obesity due to excess calories; Z68.44 Body mass index [BMI] 60.0-69.9, adult; L03.116 Cellulitis of left lower limb; B95.61 Methicillin susceptible Staphylococcus aureus infection as the cause of diseases classified elsewhere; I89.0 Lymphedema, not elsewhere classified; F84.0 Autistic disorder; F41.1 Generalized anxiety disorder; D50.9 Iron deficiency anemia, unspecified; E03.9 Hypothyroidism, unspecified; Z16.29 Resistance to other single specified antibiotic
CPT/HCPCS: 83880; 84439; 97110-GP; A4301; J1170; J1200; J1644; J1940; J1956; J2001; J2250; J2704; J2916; J3490; J7030; J7620; Q0092; Q0162

== ENCOUNTER 2018-07-16 08:28 | Inpatient (IN) | payer OTHER ==
[~2018-07-16] VITALS: Ht 162.6 cm; Wt 143.8 kg
[~2018-07-16 08:28] MED LIST changes: +L40 PO; +LEVOFLOXACIN250 MG PO; +MYCP TOP
[2018-07-16 09:27] LABS: CALCIUM 8.4 mg/dL (8.5-10.1); CARBON DIOXIDE 29.7 mmol/L (21-32); CHLORIDE SERUM 107 mmol/L (98-107); CREATININE SERUM 0.7 mg/dL (0.6-1.0); GFR1 > 60 mL/min; GLUCOSE SERUM 84 mg/dL (74-106); POTASSIUM SERUM 5.2 mmol/L (3.5-5.1); SODIUM SERUM 142 mmol/L (136-145)
[2018-07-16 09:30] LABS: PLATELET COUNT 44 x10^3mcL (130-400); RED CELL DISTRIBUTION WIDTH 19.3 % (11.5-14.5)
[2018-07-16 09:33] LABS: ALKALINE PHOSPHATASE 125 U/L (46-116); ALT/SGPT 111 U/L (14-59); AST/SGOT 108 U/L (15-37); TOTAL PROTEIN, SERUM 7.6 g/dL (6.4-8.2)
[2018-07-16 09:34] LABS: ALBUMIN 2.8 g/dL (3.4-5.0)
[2018-07-16] MEDS ORDERED: SEROQUEL50 M1 (10:01)
[2018-07-16] MEDS ORDERED: NASAL SPRAY44 ML (10:03)
[2018-07-16 10:16] LABS: BAND NEUTROPHIL 5 % (0-10); BASOPHIL 0 % (0-2); MONOCYTE 2 % (0-7); SEGMENTED NEUTROPHILS 77 % (37-75); rbc morphology (normal/abnorm) ABNORMAL (NORMAL)
[2018-07-16 10:17] LABS: PLATELET MORPHOLOGY PLATELETS DECREASED
[2018-07-16 10:45] LABS: microscopic required? YES; urine erythrocyte TRACE (NEGATIVE)
[2018-07-16 13:04] LABS: T3 TOTAL 0.65 ng/mL
[2018-07-16 13:26] LABS: RED CELL DISTRIBUTION WIDTH 19.7 % (11.5-14.5)
[2018-07-16 14:56] LABS: AMPHETAMINE QUAL UR NONE DETECTED (See below)
[2018-07-16 15:01] VITALS: BP 110/68
[2018-07-16 15:07] LABS: BAND NEUTROPHIL 8 % (0-10); MONOCYTE 4 % (0-7); SEGMENTED NEUTROPHILS 72 % (37-75)
[2018-07-16 15:08] LABS: PLATELET MORPHOLOGY PLATELETS DECREASED; ovalocyte/elliptocyte 1+; rbc morphology (normal/abnorm) ABNORMAL (NORMAL); tear drop cell (dacryocyte) 1+
[2018-07-16 15:09] LABS: PLATELET COUNT 30 x10^3mcL (130-400)
[2018-07-16 15:13] LABS: MAGNESIUM 2.1 mg/dL (1.8-2.4); PHOSPHOROUS 4.5 mg/dL (2.5-4.9)
[2018-07-16 15:22] LABS: FREE T4 1.01 ng/dL (0.76-1.46); FREE THYROXINE INDEX 2.3 ug/dL (1.4-4.5)
[2018-07-16 17:30] VITALS: BP 103/67
[2018-07-17 05:39] LABS: RED CELL DISTRIBUTION WIDTH 19.8 % (11.5-14.5)
[2018-07-17 05:43] LABS: CALCIUM 7.9 mg/dL (8.5-10.1); CARBON DIOXIDE 32.9 mmol/L (21-32); CHLORIDE SERUM 108 mmol/L (98-107); CREATININE SERUM 0.7 mg/dL (0.6-1.0); GFR1 > 60 mL/min; GLUCOSE SERUM 74 mg/dL (74-106); PHOSPHOROUS 4.8 mg/dL (2.5-4.9); POTASSIUM SERUM 5.4 mmol/L (3.5-5.1); SODIUM SERUM 145 mmol/L (136-145)
[2018-07-17 05:44] LABS: PLATELET COUNT 48 x10^3mcL (130-400)
[2018-07-17 06:10] LABS: SEGMENTED NEUTROPHILS 70 % (37-75)
[2018-07-17 06:12] LABS: BAND NEUTROPHIL 8 % (0-10); MONOCYTE 2 % (0-7); PLATELET MORPHOLOGY PLATELETS DECREASED; rbc morphology (normal/abnorm) ABNORMAL (NORMAL)
[2018-07-17 08:00] VITALS: BP 104/57
[2018-07-17 11:35] LABS: RED BLOOD CELLS 3.19 M/mm3 (4.10-5.10)
[2018-07-17 12:00] VITALS: BP 106/57
[2018-07-17 14:13] LABS: TOTAL IRON BINDING CAPACITY 296 ug/dL (250-450)
[2018-07-17 14:26] LABS: IRON 245 ug/dL (50-170)
[2018-07-17 15:32] VITALS: BP 119/46
[2018-07-17 19:20] VITALS: BP 115/45
[2018-07-17 23:02] VITALS: BP 112/46
[2018-07-18 03:12] VITALS: BP 126/51
[2018-07-18 05:24] LABS: BASOPHIL % 0.2 % (0-2)
[2018-07-18 05:37] LABS: CARBON DIOXIDE 30.4 mmol/L (21-32); CREATININE SERUM 1.2 mg/dL (0.6-1.0); PHOSPHOROUS 4.6 mg/dL (2.5-4.9)
[2018-07-18 06:09] LABS: RED CELL DISTRIBUTION WIDTH 22.4 % (11.5-14.5)
[2018-07-18 06:17] LABS: rbc morphology (normal/abnorm) ABNORMAL (NORMAL)
[2018-07-18 06:18] LABS: ovalocyte/elliptocyte 1+
[2018-07-18 06:25] LABS: PLATELET COUNT 41 x10^3mcL (130-400)
[2018-07-18 08:56] VITALS: BP 87/53
[2018-07-18 11:57] VITALS: BP 100/74
[2018-07-18 15:51] VITALS: BP 118/46
[2018-07-18 19:00] VITALS: BP 119/54
[2018-07-18 23:00] VITALS: BP 131/51
[2018-07-19 03:46] VITALS: BP 122/61
[2018-07-19 05:56] LABS: BASOPHIL % 0.1 % (0-2)
[2018-07-19 05:59] LABS: PLATELET COUNT 42 x10^3mcL (130-400); RED CELL DISTRIBUTION WIDTH 22.7 % (11.5-14.5)
[2018-07-19 06:05] LABS: CALCIUM 8.9 mg/dL (8.5-10.1); CREATININE SERUM 1.2 mg/dL (0.6-1.0); MAGNESIUM 2.2 mg/dL (1.8-2.4); PHOSPHOROUS 4.9 mg/dL (2.5-4.9); POTASSIUM SERUM 4.9 mmol/L (3.5-5.1)
[2018-07-19 07:30] VITALS: BP 115/62
[2018-07-19 08:13] VITALS: BP 115/62
[2018-07-19 12:00] VITALS: BP 140/77
[2018-07-19 19:30] VITALS: BP 128/76
[2018-07-20] VITALS: BP 138/80
[2018-07-20 03:26] VITALS: BP 127/80
[2018-07-20 05:32] LABS: BASOPHIL % 0.6 % (0-2); RED CELL DISTRIBUTION WIDTH 22.9 % (11.5-14.5)
[2018-07-20 05:40] LABS: CALCIUM 9.2 mg/dL (8.5-10.1); CARBON DIOXIDE 32.8 mmol/L (21-32); CHLORIDE SERUM 106 mmol/L (98-107); CREATININE SERUM 1.1 mg/dL (0.6-1.0); GFR1 > 60 mL/min; GLUCOSE SERUM 99 mg/dL (74-106); MAGNESIUM 1.9 mg/dL (1.8-2.4); PHOSPHOROUS 4.5 mg/dL (2.5-4.9); POTASSIUM SERUM 4.2 mmol/L (3.5-5.1); SODIUM SERUM 143 mmol/L (136-145)
[2018-07-20 05:41] LABS: rbc morphology (normal/abnorm) ABNORMAL (NORMAL)
[2018-07-20 05:42] LABS: PLATELET COUNT 41 x10^3mcL (130-400)
[2018-07-20 08:00] VITALS: BP 124/57
[2018-07-20 11:43] VITALS: BP 130/80
[2018-07-20 15:00] VITALS: BP 128/74
[2018-07-20 19:45] VITALS: BP 134/71
[2018-07-21 00:05] VITALS: BP 137/67
[2018-07-21 03:57] VITALS: BP 133/70
[2018-07-21 05:25] LABS: BASOPHIL % 0.2 % (0-2)
[2018-07-21 05:27] LABS: PLATELET COUNT 50 x10^3mcL (130-400); RED CELL DISTRIBUTION WIDTH 21.9 % (11.5-14.5)
[2018-07-21 05:32] LABS: CALCIUM 9.1 mg/dL (8.5-10.1); CARBON DIOXIDE 33.7 mmol/L (21-32); CHLORIDE SERUM 105 mmol/L (98-107); GFR1 > 60 mL/min; GLUCOSE SERUM 89 mg/dL (74-106); POTASSIUM SERUM 4.1 mmol/L (3.5-5.1); SODIUM SERUM 146 mmol/L (136-145)
[2018-07-21 05:57] LABS: rbc morphology (normal/abnorm) ABNORMAL (NORMAL)
[2018-07-21 07:25] VITALS: BP 131/72
[2018-07-21 11:50] VITALS: BP 127/75
[2018-07-21 15:00] VITALS: BP 155/73
[2018-07-22 05:59] LABS: BASOPHIL % 0.2 % (0-2); PLATELET COUNT 51 x10^3mcL (130-400); RED CELL DISTRIBUTION WIDTH 20.6 % (11.5-14.5)
[2018-07-22 06:53] LABS: rbc morphology (normal/abnorm) ABNORMAL (NORMAL)
[2018-07-22 07:22] LABS: CALCIUM 9.3 mg/dL (8.5-10.1); CARBON DIOXIDE 30.2 mmol/L (21-32); CHLORIDE SERUM 105 mmol/L (98-107); GFR1 > 60 mL/min; GLUCOSE SERUM 103 mg/dL (74-106); POTASSIUM SERUM 4.1 mmol/L (3.5-5.1); SODIUM SERUM 145 mmol/L (136-145)
[2018-07-22 07:49] VITALS: Ht 162.6 cm; Wt 143.8 kg
[2018-07-22 08:30] VITALS: BP 144/88
[2018-07-22 12:30] VITALS: BP 149/82
[2018-07-22 16:30] VITALS: BP 143/75
[2018-07-22 21:13] VITALS: BP 139/73
[2018-07-23 05:26] VITALS: BP 140/81
[2018-07-23 06:03] LABS: CALCIUM 8.6 mg/dL (8.5-10.1); CARBON DIOXIDE 35.9 mmol/L (21-32); CHLORIDE SERUM 106 mmol/L (98-107); CREATININE SERUM 0.8 mg/dL (0.6-1.0); GFR1 > 60 mL/min; GLUCOSE SERUM 115 mg/dL (74-106); POTASSIUM SERUM 4.1 mmol/L (3.5-5.1); SODIUM SERUM 144 mmol/L (136-145)
[2018-07-23 06:07] LABS: BASOPHIL % 0.3 % (0-2)
[2018-07-23 07:24] LABS: PLATELET COUNT 57 x10^3mcL (130-400); RED CELL DISTRIBUTION WIDTH 22.1 % (11.5-14.5)
[2018-07-23 09:30] VITALS: BP 122/76
[2018-07-23 10:29] LABS: ovalocyte/elliptocyte 1+; rbc morphology (normal/abnorm) ABNORMAL (NORMAL)
[2018-07-23 13:13] VITALS: BP 141/83
[2018-07-23 17:21] VITALS: BP 141/83
[2018-07-23 17:42] VITALS: BP 145/84
[2018-07-23 21:00] VITALS: BP 156/93
[2018-07-24 05:38] VITALS: BP 157/88
[2018-07-24 07:26] LABS: CALCIUM 8.9 mg/dL (8.5-10.1); CARBON DIOXIDE 30.6 mmol/L (21-32); CHLORIDE SERUM 106 mmol/L (98-107); CREATININE SERUM 0.7 mg/dL (0.6-1.0); GFR1 > 60 mL/min; GLUCOSE SERUM 99 mg/dL (74-106); MAGNESIUM 1.9 mg/dL (1.8-2.4); PHOSPHOROUS 4.1 mg/dL (2.5-4.9); SODIUM SERUM 143 mmol/L (136-145)
[2018-07-24 08:42] VITALS: BP 142/82
[2018-07-24 10:23] LABS: BASOPHIL % 0.4 % (0-2)
[2018-07-24 10:27] LABS: RED CELL DISTRIBUTION WIDTH 21.6 % (11.5-14.5)
[2018-07-24 10:28] LABS: PLATELET COUNT 33 x10^3mcL (130-400)
[2018-07-24 10:31] LABS: rbc morphology (normal/abnorm) ABNORMAL (NORMAL)
[2018-07-24 12:53] VITALS: BP 115/46
[2018-07-24 17:13] VITALS: BP 117/63
[2018-07-24 21:34] VITALS: BP 128/65
[2018-07-25 05:33] VITALS: BP 149/86
[2018-07-25 09:30] VITALS: BP 142/69
[2018-07-25 12:47] VITALS: BP 132/78
[2018-07-25 20:53] VITALS: BP 133/77
[2018-07-26 05:35] VITALS: BP 125/52
[2018-07-26 10:01] VITALS: BP 141/84
[2018-07-26 11:58] VITALS: BP 141/84
[2018-07-26 14:20] VITALS: BP 132/80
[2018-07-26 18:25] VITALS: BP 148/96
[2018-07-26 20:52] VITALS: BP 128/82
[2018-07-27 05:13] VITALS: BP 146/86
[2018-07-27 09:30] VITALS: BP 131/80
[2018-07-27 13:44] VITALS: BP 150/78
[2018-07-27 16:49] VITALS: BP 148/92
[2018-07-27 19:52] VITALS: BP 143/81
[2018-07-28 06:20] VITALS: BP 122/45
[2018-07-28 09:13] VITALS: BP 112/67
[2018-07-28 09:15] VITALS: BP 122/50
[2018-07-28 12:32] VITALS: BP 101/49
[2018-07-28 16:13] VITALS: BP 144/85
[2018-07-28 21:33] VITALS: BP 137/77
[2018-07-29 05:40] VITALS: BP 140/85
[2018-07-29 09:29] VITALS: BP 110/74
[2018-07-29] MEDS ORDERED: ZITHROMAX Z-PA250 MG PO (12:42)
[2018-07-29 13:00] VITALS: BP 108/52
[2018-07-29 13:17] VITALS: BP 110/74
== END 2018-07-29 15:05 | disposition hospice, home (50) | DRG 720 ==
LOC: ED 08:28 → DU 11:17 → IC 11:17 → DU 12:27 → IC 12:33 → DU 07-22 19:15
PROVIDERS: Emergency Medicine; Family Medicine; General Practice; Internal Medicine
PROC: 30233N1 Transfusion of Nonautologous Red Blood Cells into Peripheral Vein, Percutaneous Approach (ICD-10-PCS; principal; 2018-07-16)
DX: A41.9 Sepsis, unspecified organism (principal); J96.02 Acute respiratory failure with hypercapnia; N17.0 Acute kidney failure with tubular necrosis; J69.0 Pneumonitis due to inhalation of food and vomit; E43 Unspecified severe protein-calorie malnutrition; D69.59 Other secondary thrombocytopenia; D61.818 Other pancytopenia; E66.01 Morbid (severe) obesity due to excess calories; R13.10 Dysphagia, unspecified; J96.21 Acute and chronic respiratory failure with hypoxia; R65.20 Severe sepsis without septic shock; L97.929 Non-pressure chronic ulcer of unspecified part of left lower leg with unspecified severity; I89.8 Other specified noninfective disorders of lymphatic vessels and lymph nodes; E87.5 Hyperkalemia; Z68.44 Body mass index [BMI] 60.0-69.9, adult; R68.0 Hypothermia, not associated with low environmental temperature; D64.9 Anemia, unspecified; E03.9 Hypothyroidism, unspecified; F84.0 Autistic disorder; Z53.29 Procedure and treatment not carried out because of patient's decision for other reasons
CPT/HCPCS: 36600; 82962; 83880; 84439; 87804; 92526-GN; 92610-GN; 97110-GP; A4628; J1885; J1940; J1956; J2020; J2060; J2185; J2270; J2405; J3475; J3490; J7030; J7040; J7050; J7131; J7620; P9016; Q0092; Q0163; Q9967